=== PATIENT | male | born 1980 | race American Indian/Alaskan Native ===

== ENCOUNTER 2017-11-10 12:12 | Emergency (ER) | payer SELFPAY ==
[2017-11-10] MEDS ORDERED: MOTRIN PO ONE (12:39)
--- NOTE | 2017-11-10 13:20 | XRay Report ---
RIGHT FOOT, 3 views: History: Right foot pain. There is moderate to severe diffuse soft tissue swelling. Bone mineralization is normal. No evidence for fracture, malalignment or bone lesion. There are mild degenerative changes in the midfoot and first metatarsophalangeal joint. Small plantar spur is noted. IMPRESSION: Soft tissue swelling. Degenerative changes. Plantar spur. No acute bony injury is appreciated.
--- NOTE | 2017-11-10 13:40 | Emergency Department Report ---
ED Lower Extremity HPI - General Chief Complaint: Extremity Injury, Lower Stated Complaint: FOOT PAIN Time Seen by Provider: 11/10/17 12:35 Source: patient, EMS Mode of arrival: Wheelchair Limitations: Physical Limitation - History of Present Illness Initial Comments: This is a 37-year-old male nontoxic, well nourished in appearance, no acute signs of distress presents to the ED with c/o of right foot pain. Patient stated that he was diagnosed with gout on his left foot and has been primarily putting a lot of weight on his right foot area. Patient denies any trauma to the area.Patient denies any numbness, tingling, fever, chills, nausea, vomiting , chest pain, shortness of breath, headache, stiff neck. Patient denies any joint swelling or joint redness. Patient denies decreased range of motion. Patient stated has decreased gait due to pain. MD Complaint: foot injury Injury: Foot: Right Severity: mild Severity scale (0 -10): 8 Improves With: immobilization Worsens With: weight bearing, movement, palpation Associated Symptoms: swelling, unable to bear weight. denies: snap/pop sensation, numbness, tingling, able to partially bear weight, ambulatory - Related Data Previous Rx's Medication Instructions Recorded Last Taken Type Ibuprofen [Motrin] 800 mg PO Q8HR PRN #30 tablet 11/10/17 Unknown Rx Allergies Allergy/AdvReac Type Severity Reaction Status Date / Time No Known Allergies Allergy Unverified 11/10/17 14:20 ED Review of Systems ROS: Stated complaint: FOOT PAIN Other details as noted in HPI Constitutional: denies: chills, fever Eyes: denies: eye pain, eye discharge, vision change ENT: denies: ear pain, throat pain Respiratory: denies: cough, shortness of breath, wheezing Cardiovascular: denies: chest pain, palpitations Endocrine: no symptoms reported Gastrointestinal: denies: abdominal pain, nausea, diarrhea Genitourinary: denies: urgency, dysuria Musculoskeletal: denies: back pain, joint swelling, arthralgia Skin: denies: rash, lesions Neurological: denies: headache, weakness, paresthesias Psychiatric: denies: anxiety, depression Hematological/Lymphatic: denies: easy bleeding, easy bruising ED Past Medical Hx - Past Medical History Previous Medical History?: No - Surgical History Past Surgical History?: No - Social History Smoking Status: Current Every Day Smoker Substance Use Type: None - Medications Home Medications: Home Medications Medication Instructions Recorded Confirmed Last Taken Type Ibuprofen [Motrin] 800 mg PO Q8HR PRN #30 tablet 11/10/17 Unknown Rx ED Physical Exam - General Limitations: Physical Limitation General appearance: alert, in no apparent distress - Head Head exam: Present: atraumatic, normocephalic - Eye Eye exam: Present: normal appearance - ENT ENT exam: Present: mucous membranes moist - Neck Neck exam: Present: normal inspection - Respiratory Respiratory exam: Present: normal lung sounds bilaterally. Absent: respiratory distress - Cardiovascular Cardiovascular Exam: Present: regular rate, normal rhythm. Absent: systolic murmur, diastolic murmur, rubs, gallop - GI/Abdominal GI/Abdominal exam: Present: soft, normal bowel sounds - Rectal Rectal exam: Present: deferred - Extremities Exam Extremities exam: Present: normal inspection, full ROM, tenderness, normal capillary refill. Absent: joint swelling - Expanded Lower Extremity Exam Right Hip exam: Present: normal inspection, full ROM. Absent: tenderness, swelling Upper Leg exam: Present: normal inspection, full ROM. Absent: tenderness, swelling Knee exam: Present: normal inspection, full ROM. Absent: tenderness, swelling Lower Leg exam: Present: normal inspection, full ROM. Absent: tenderness, swelling Ankle exam: Present: normal inspection, full ROM. Absent: tenderness, swelling , abrasion, laceration, ecchymosis, deformity, crepidus, dislocation, erythema, anterior draw sign Foot/Toe exam: Present: normal inspection, full ROM, tenderness, swelling. Absent: abrasion, laceration, ecchymosis, deformity, crepidus, dislocation, erythema, amputation, puncture wound, foreign body, calcaneal tenderness, tenderness at base of 5th metatarsal, nail avulsion, subungual hematoma Neuro vascular tendon exam: Present: no vascular compromise. Absent: pulse deficit, abnormal cap refill, motor deficit, sensory deficit, tendon deficit, extremity cold to touch, pallor, abnormal 2-point discrimination, decreased fine /light touch, foot drop, peroneal nerve deficit, significant pain with passive ROM of distal joint Gait: Positive: unable to bear weight - Back Exam Back exam: Present: normal inspection, full ROM - Neurological Exam Neurological exam: Present: alert, oriented X3, normal gait - Psychiatric Psychiatric exam: Present: normal affect, normal mood - Skin Skin exam: Present: warm, dry, intact, normal color. Absent: rash ED Course Vital Signs 11/10/17 11/10/17 12:15 13:35 Temperature 98.9 F Pulse Rate 94 H Respiratory 18 18 Rate Blood Pressure 127/73 O2 Sat by Pulse 96 Oximetry - Reevaluation(s) Reevaluation #1: 11/10/17 13:40 Patient is speaking in full sentences with no signs of distress noted. ED Lower Extremity MDM - Medical Decision Making This is a 37-year-old male that presents with right foot strain. Patient is stable and was examined by me. I referred patient to an orthopedic doctor for further evaluation for possible MRI. X-ray has been obtained and dictated by the radiologist. Patient is notified of the x-ray report with noted by the patient. Patient does have normal gait with no tenderness and no joint swelling. No ecchymosis. no joint redness or swelling. Not warm to touch. No signs of cellulites present. shafting worker has been consulted about a wheel chair at discharge. shafting worker spoke with patient and miteshn stated he would rather get crutches due to money situation. Patient was educated by RN how to use crutches. Patient was instructed to RICE therapy. Patient received Motrin for pain. Patient is discharged with Motrin. At time of discharge, the patient does not seem toxic or ill in appearance. No acute signs of distress noted. Patient agrees to discharge treatment plan of care. No further questions noted by the patient. Critical care attestation.: If time is entered above; I have spent that time in minutes in the direct care of this critically ill patient, excluding procedure time. ED Disposition Clinical Impression: Strain of left foot Qualifiers: Encounter type: initial encounter Qualified Code(s): S96.912A - Strain of unspecified muscle and tendon at ankle and foot level, left foot, initial encounter Disposition: - TO HOME OR SELFCARE Is pt being admited?: No Does the pt Need Aspirin: No Condition: Stable Instructions: RICE Therapy (ED) Additional Instructions: Follow-up with a orthopedic doctor in 3-5 days or if symptoms worsen and continue return to emergency room as soon as possible. Prescriptions: Ibuprofen [Motrin] 800 mg PO Q8HR PRN #30 tablet PRN Reason: Pain, Moderate (4-6) Referrals: PRIMARY CAREMD [Primary Care Provider] - 3-5 Days SHIKHA RACHEL MD [Staff Physician] - 3-5 Days [facility] [Outside] - 3-[address] [facility] [Outside] - 3-5 Days
[2017-11-10 16:20] VITALS: BP 148/76
== END 2017-11-10 16:56 | disposition home or self-care (01) ==
LOC: ED 12:12
DX: S96.912A Strain of unspecified muscle and tendon at ankle and foot level, left foot, initial encounter (principal); F17.200 Nicotine dependence, unspecified, uncomplicated; X50.0XXA Overexertion from strenuous movement or load, initial encounter; Y93.89 Activity, other specified; Y92.89 Other specified places as the place of occurrence of the external cause; Y99.8 Other external cause status
CPT/HCPCS: 99284

== ENCOUNTER 2018-07-03 12:39 | Emergency (ER) | payer SELFPAY ==
[2018-07-03 12:50] VITALS: BP 151/93
[2018-07-03] MEDS ORDERED: DECADRON IM ONE (13:30)
[2018-07-03] MEDS ORDERED: COLCHICINE PO ONE ×2 (13:30)
[2018-07-03] MEDS ORDERED: NORCO 10/325 PO ONE (13:30)
--- NOTE | 2018-07-03 14:05 | Emergency Department Report ---
ED Extremity Problem HPI - General Chief complaint: Extremity Problem,Nontraumatic Stated complaint: RT FOOT PAIN Time Seen by Provider: 07/03/18 13:23 Source: patient, EMS Mode of arrival: Wheelchair Limitations: No Limitations - History of Present Illness Initial comments: Patient is a 37-year-old -[place] male who is morbidly obese who is com plaining of right foot pain and ankle pain. Patient has a history of gout. Patient states that even gently touching his foot and ankle causes intense pain. Patient states pain is intermittent in severity is worse with movement and light touching. The patient denies any fevers chills nausea vomiting diarrhea. Patient states it is been no acute trauma. Severity scale (0 -10): 10 - Related Data Previous Rx's Medication Instructions Recorded Last Taken Type Ibuprofen [Motrin] 800 mg PO Q8HR PRN #30 tablet 11/10/17 Unknown Rx HYDROcodone/APAP 5-325 [[place] 1 each PO Q6HR PRN #14 tablet 07/03/18 Unknown Rx 5/325] Ketorolac [Toradol] 10 mg PO Q6H PRN #12 tablet 07/03/18 Unknown Rx Allergies Allergy/AdvReac Type Severity Reaction Status Date / Time No Known Allergies Allergy Unverified 11/10/17 14:20 ED Review of Systems ROS: Stated complaint: RT FOOT PAIN Other details as noted in HPI Comment: All other systems reviewed and negative ED Past Medical Hx - Past Medical History Additional medical history: Gout - Surgical History Past Surgical History?: No - Social History Smoking Status: Never Smoker Substance Use Type: None - Medications Home Medications: Home Medications Medication Instructions Recorded Confirmed Last Taken Type Ibuprofen [Motrin] 800 mg PO Q8HR PRN #30 tablet 11/10/17 Unknown Rx HYDROcodone/APAP 5-325 [[place] 1 each PO Q6HR PRN #14 tablet 07/03/18 Unknown Rx 5/325] Ketorolac [Toradol] 10 mg PO Q6H PRN #12 tablet 07/03/18 Unknown Rx ED Physical Exam - General Limitations: No Limitations General appearance: alert, in no apparent distress - Head Head exam: Present: atraumatic, normocephalic - Eye Eye exam: Present: normal appearance - ENT ENT exam: Present: mucous membranes moist - Neck Neck exam: Present: normal inspection - Respiratory Respiratory exam: Present: normal lung sounds bilaterally. Absent: respiratory distress, wheezes, rales, rhonchi - Cardiovascular Cardiovascular Exam: Present: regular rate, normal rhythm. Absent: systolic murmur, diastolic murmur, rubs, gallop - GI/Abdominal GI/Abdominal exam: Present: soft, normal bowel sounds. Absent: distended, tenderness, guarding, rebound - Rectal Rectal exam: Present: deferred - Extremities Exam Extremities exam: Present: normal inspection - Back Exam Back exam: Present: normal inspection - Neurological Exam Neurological exam: Present: alert, oriented X3 - Psychiatric Psychiatric exam: Present: normal affect, normal mood - Skin Skin exam: Present: warm, dry, intact, normal color. Absent: rash ED Course Vital Signs 07/03/18 07/03/18 12:47 13:42 Temperature 98.3 F Pulse Rate 86 Respiratory 18 16 Rate Blood Pressure 151/93 O2 Sat by Pulse 97 Oximetry ED Medical Decision Making - Medical Decision Making Patient was started on colchicine and pain meds for gout. The patient be discharged home. Critical care attestation.: If time is entered above; I have spent that time in minutes in the direct care of this critically ill patient, excluding procedure time. ED Disposition Clinical Impression: Acute gout Qualifiers: Gout site: foot Gout etiology: idiopathic Laterality: right Qualified Code(s): M10.071 - Idiopathic gout, right ankle and foot Disposition: - TO HOME OR SELFCARE Is pt being admited?: No Does the pt Need Aspirin: No Condition: Stable Instructions: Acute Gouty Arthritis (ED) Referrals: [facility] [Other] - 3-5 Days Time of Disposition: 14:04
== END 2018-07-03 14:40 | disposition home or self-care (01) ==
LOC: ED 12:39
DX: M10.071 Idiopathic gout, right ankle and foot (principal)
CPT/HCPCS: 96372; 99283; J1100

== ENCOUNTER 2021-06-29 15:31 | Inpatient (IN) | payer SELFPAY ==
[2021-06-29] MEDS ORDERED: ONDANSETRON 4 MG/2 ML INJ IV ONE (18:25)
--- NOTE | 2021-06-29 18:31 | Emergency Department Report ---
HPI - General Chief Complaint: Weakness Time Seen by Provider: 06/29/21 18:16 - HPI HPI: Room 2 The patient is a 40-year-old male present with chief complaint of nausea vomiting. The patient admits to nausea vomiting for the past several hours which is what prompted him to come to the emergency department. The patient was in the waiting room when he was witnessed having intractable nausea vomiting. Patient appears confused and is a poor historian. Patient initially complained of a headache but then when asked directly he denied having a headache or chest pain. Patient only admits to nausea and vomiting as his only symptoms. The patient is slow to respond and does not answer all questions posed to him. ED Past Medical Hx - Past Medical History Additional medical history: Gout - Family History Family history: no significant - Social History Smoking Status: Unknown if ever smoked Substance Use Type: None - Medications Home Medications: Home Medications Medication Instructions Recorded Confirmed Last Taken Type Ibuprofen [Motrin] 800 mg PO Q8HR PRN #30 tablet 11/10/17 Unknown Rx HYDROcodone/APAP 5-325 [[place] 1 each PO Q6HR PRN #14 tablet 07/03/18 Unknown Rx 5/325] Ketorolac [Toradol] 10 mg PO Q6H PRN #12 tablet 07/03/18 Unknown Rx ED Review of Systems ROS: Stated complaint: HYPERGLYCEMIA/HYERTENSION Other details as noted in HPI Comment: Unobtainable due to pts medical conditions Physical Exam - Physical Exam Vital Signs: Vital Signs 06/29/21 15:36 Temperature 98.3 F Pulse Rate 98 H Respiratory 16 Rate Blood Pressure 142/86 [Left] O2 Sat by Pulse 98 Oximetry Physical Exam: GENERAL: The patient is well-developed well-nourished male lying on stretcher appearing somewhat confused but in no acute distress. [] HEENT: Normocephalic. Atraumatic. Strabismus. Patient has moist mucous membranes. NECK: Supple. No meningitic signs are noted. Trachea midline CHEST/LUNGS: Clear to auscultation. There is no respiratory distress noted. HEART/CARDIOVASCULAR: Regular. There is no tachycardia. There is no gallop rub or murmur. ABDOMEN: Abdomen is soft, nontender. Patient has normal bowel sounds. There is no abdominal distention. SKIN: There is no rash. There is no edema. There is no diaphoresis. NEURO: The patient is awake but slow to respond. Patient does not answer all questions.. The patient is not cooperative with neurologic exam. Strabismus present. The patient has normal speech MUSCULOSKELETAL: There is no evidence of acute injury. ED Course Vital Signs 06/29/21 15:36 Temperature 98.3 F Pulse Rate 98 H Respiratory 16 Rate Blood Pressure 142/86 [Left] O2 Sat by Pulse 98 Oximetry ED Medical Decision Making - Lab Data Result diagrams: 06/29/21 19:01 06/29/21 19:00 Laboratory Tests 06/29/21 06/29/21 06/29/21 18:24 19:00 19:00 WBC RBC Hgb Hct MCV MCH MCHC RDW Plt Count Lymph % (Auto) [place] % (Auto) Eos % (Auto) Baso % (Auto) Lymph # (Auto) [place] # (Auto) Eos # (Auto) Baso # (Auto) Seg Neutrophils % Seg Neutrophils # Sodium 133 L Potassium 4.0 Chloride 96.3 L Carbon Dioxide 21 L Anion Gap 20 BUN 9 Creatinine 0.8 Estimated GFR > 60 BUN/Creatinine Ratio 11 Glucose 331 H POC Glucose 348 H Calcium 10.5 H Magnesium 1.60 L Total Bilirubin 0.70 AST 15 ALT 14 Alkaline Phosphatase 133 H Ammonia Total Creatine Kinase 150 CK-MB (CK-2) 2.1 CK-MB (CK-2) Rel Index 1.4 Total Protein 8.4 H Albumin 3.9 Albumin/Globulin Ratio 0.9 Lipase 9 L TSH Free T4 Plasma/Serum Alcohol < 0.01 06/29/21 06/29/21 06/29/21 19:01 19:01 19:01 WBC 17.2 H RBC 5.15 H Hgb 14.6 Hct 45.1 MCV 88 MCH 28 MCHC 32 RDW 14.6 Plt Count 298 Lymph % (Auto) [employer] [place] % (Auto) [employer] Eos % (Auto) [employer] Baso % (Auto) [employer] Lymph # (Auto) [employer] [place] # (Auto) [employer] Eos # (Auto) [employer] Baso # (Auto) [employer] Seg Neutrophils % [employer] Seg Neutrophils # [employer] Sodium Potassium Chloride Carbon Dioxide Anion Gap BUN Creatinine Estimated GFR BUN/Creatinine Ratio Glucose POC Glucose Calcium Magnesium Total Bilirubin AST ALT Alkaline Phosphatase Ammonia 33.0 Total Creatine Kinase CK-MB (CK-2) CK-MB (CK-2) Rel Index Total Protein Albumin Albumin/Globulin Ratio Lipase TSH 1.050 Free T4 1.21 Plasma/Serum Alcohol - EKG Data -: EKG Interpreted by De EKG shows normal: sinus rhythm, axis Rate: normal (64 bpm) - EKG Data When compared to previous EKG there are: previous EKG unavailable Interpretation: nonspecific ST-T wave zaida (Biphasic T waves lead III) - Radiology Data Radiology results: report reviewed (CT head), image reviewed (CT head) [facility] [address] [place] [address] Cat Scan Report Signed Patient: SERA HOYOS MR#: [id number] : 1980 Acct:[id number] Age/Sex: 40 / M ADM Date: 06/29/21 Loc: ED Attending Dr: Ordering Physician: MELISSA MANZO MD Date of Service: 06/29/21 Procedure(s): CT head/brain wo con Accession Number(s): [id number] cc: MELISSA MANZO MD CT head/brain wo con INDICATION / CLINICAL INFORMATION: 40 years Male; Nausea vomiting, altered mental status. TECHNIQUE: Routine CT head without contrast. All CT scans at this location are performed using CT dose reduction for ALARA by means of automated exposure control. COMPARISON: None. FINDINGS: BRAIN / INTRACRANIAL CONTENTS: The motion and beam hardening significantly degrades the image quality. However, the brain grossly demonstrate appropriate attenuation for age. The ventricular system appears to be within normal limits in size and configuration. There is no clear CT evidence of acute intracranial hemorrhage or significant mass effect. ORBITS: No significant abnormality of visualized orbits. SINUSES / MASTOIDS: No significant abnormality in the visualized paranasal sinuses or mastoid air cells. CRANIOCERVICAL JUNCTION: No significant abnormality. ADDITIONAL FINDINGS: None. IMPRESSION: 1. The study is limited by motion. However, there is no gross CT evidence of acute intracranial process. Signer Name: Fredrick Jacobo MD Signed: 06/29/2021 7:54 PM Workstation Name: [id number] Transcribed By: MR Dictated By: Fredrick Jacobo MD Electronically Authenticated By: Fredrick Jacobo MD Signed Date/Time: 06/29/211953 DD/ 52 - Differential Diagnosis ICH, dehydration, gastritis, ACS, UTI, DKA, intracranial mass Critical care attestation.: If time is entered above; I have spent that time in minutes in the direct care of this critically ill patient, excluding procedure time. ED Disposition Clinical Impression: Altered mental status Disposition: ADMITTED INPATIENT Is pt being admited?: Yes Does the pt Need Aspirin: No Condition: Fair Time of Disposition: 21:02 (Care transferred to hospitalist (Dr. Alba))
[2021-06-29 19:33] LABS: Hematocrit 45.1 % (35.5-45.6); Hemoglobin 14.6 gm/dl (11.8-15.2); Mean Corpuscular HGB Conc 32 % (32-34); Mean Corpuscular Volume 88 fl (84-94); Platelet Count 298 K/mm3 (140-440); Red Blood Count 5.15 M/mm3 (3.65-5.03); Red Cell Distribution Width 14.6 % (13.2-15.2)
[2021-06-29 19:51] LABS: Alanine Aminotransferase 14 units/L (7-56); Albumin 3.9 g/dL (3.9-5); BUN/Creatinine Ratio 11; Blood Urea Nitrogen 9 mg/dL (9-20); Calcium 10.5 mg/dL (8.4-10.2); Creatine Kinase MB 2.1 ng/mL (0.0-4.0); Hemolysis Index 22
--- NOTE | 2021-06-29 19:59 | Cat Scan Report ---
CT head/brain wo con INDICATION / CLINICAL INFORMATION: 40 years Male; Nausea vomiting, altered mental status. TECHNIQUE: Routine CT head without contrast. All CT scans at this location are performed using CT dos e reduction for ALARA by means of automated exposure control. COMPARISON: None. FINDINGS: BRAIN / INTRACRANIAL CONTENTS: The motion and beam hardening significantly degrades the image quality . However, the brain grossly demonstrate appropriate attenuation for age. The ventricular system appe ars to be within normal limits in size and configuration. There is no clear CT evidence of acute intr acranial hemorrhage or significant mass effect. ORBITS: No significant abnormality of visualized orbits. SINUSES / MASTOIDS: No significant abnormality in the visualized paranasal sinuses or mastoid air rambo ls. CRANIOCERVICAL JUNCTION: No significant abnormality. ADDITIONAL FINDINGS: None. IMPRESSION: 1. The study is limited by motion. However, there is no gross CT evidence of acute intracranial proce ss. Signer Name: Fredrick Jacobo MD Signed: 06/29/2021 7:54 PM Workstation Name: [id number]
[2021-06-29 20:01] LABS: Free T4 (Free Thyroxine) 1.21 ng/dL (0.76-1.46)
[2021-06-29] MEDS ORDERED: MAGNESIUM SULFATE 2 GM/50 ML BAG IV ONE (20:08)
[2021-06-29 20:36] LABS: Basophils % (Manual) 0 % (0.0-1.8); Eosinophils % (Manual) 0 % (0.0-4.3); Total Cells Counted 100
[2021-06-29 20:37] LABS: RBC Morphology Normal
[2021-06-29] MEDS ORDERED: INSULIN REGULAR, HUMAN 100 UNITS/1 ML IV ONE (20:51)
[2021-06-29] MEDS ORDERED: SODIUM CHLORIDE 0.9% 1000 ML 1,000 ML IV ONE (20:51)
[2021-06-29] MEDS ORDERED: MORPHINE 2 MG/1 ML INJ IV PRN (21:20)
[2021-06-29] MEDS ORDERED: ALBUTEROL 2.5 MG/3 ML NEBU IH PRN (21:20)
[2021-06-29] MEDS ORDERED: ONDANSETRON 4 MG/2 ML INJ IV PRN (21:20)
[2021-06-29] MEDS ORDERED: HYDROmorphone 1 MG/1 ML INJ IV PRN (21:20)
[2021-06-29] MEDS ORDERED: DEXTROSE 50% IN WATER (25GM) 50 ML SYRINGE IV PRN (21:20)
--- NOTE | 2021-06-29 21:28 | History and Physical Report ---
History of Present Illness Date of examination: 06/29/21 Date of admission: 06/29/21 Chief complaint: Weakness Nausea vomiting History of present illness: 40-year-old male with past medical history of hypertension, diabetes and obesity was brought to the emergency room because of nausea vomiting. The patient admits to nausea vomiting for the past several hours which is what prompted him to come to the emergency department. The patient was in the waiting room when he was witnessed having intractable nausea vomiting. Patient appears confused and is a poor historian. Patient initially complained of a headache but then when asked directly he denied having a headache or chest pain. Patient only admits to nausea and vomiting as his only symptoms. The patient is slow to respond and does not answer all questions posed to him. In the emergency room initial CT scan shows no acute intracranial abnormality, but patient glucose is 331, magnesium 1.60. Ammonia level is 33.0. So going to admit the patient we will put the patient on oxygen IV fluid insulin sliding scale Past History Past Medical History: diabetes, hypertension, other (Obesity gout) Past Surgical History: No surgical history Social history: no significant social history Family history: hypertension Medications and Allergies Allergies Allergy/AdvReac Type Severity Reaction Status Date / Time No Known Allergies Allergy Unverified 11/10/17 14:20 Home Medications Medication Instructions Recorded Confirmed Last Taken Type Ibuprofen [Motrin] 800 mg PO Q8HR PRN #30 tablet 11/10/17 Unknown Rx HYDROcodone/APAP 5-325 [[place] 1 each PO Q6HR PRN #14 tablet 07/03/18 Unknown Rx 5/325] Ketorolac [Toradol] 10 mg PO Q6H PRN #12 tablet 07/03/18 Unknown Rx Active Meds: Active Medications Acetaminophen (Acetaminophen 325 Mg Tab) 650 mg PO Q4H PRN PRN Reason: Pain MILD(1-3)/Fever >100.5/FINLEY Albuterol (Albuterol 2.5 Mg/3 Ml Nebu) 2.5 mg IH Q3HRT PRN PRN Reason: Shortness Of Breath Albuterol/Ipratropium (Ipratropium/Albuterol Sulfate 3 Ml Ampul.Neb) 1 ampul IH Q6HRT REBEL Dextrose (Dextrose 50% In Water (25gm) 50 Ml Syringe) 50 ml IV Q30MIN PRN; Protocol PRN Reason: Hypoglycemia Famotidine (Famotidine 20 Mg/2 Ml Inj) 20 mg IV BID REBEL Sodium Chloride (Nacl 0.9% 1000 Ml) 1,000 mls @ 999 mls/hr IV ONCE ONE Stop: 06/29/21 21:51 Sodium Chloride (Nacl 0.9% 1000 Ml) 1,000 mls @ 125 mls/hr IV DIRECT REBEL Ondansetron HCl (Ondansetron 4 Mg/2 Ml Inj) 4 mg IV Q8H PRN PRN Reason: Nausea And Vomiting Sodium Chloride (Sodium Chloride 0.9% 10 Ml Flush Syringe) 10 ml IV BID REBEL Sodium Chloride (Sodium Chloride 0.9% 10 Ml Flush Syringe) 10 ml IV PRN PRN PRN Reason: LINE FLUSH Review of Systems All systems: negative Constitutional: fatigue, weakness, malaise, other (Confusion) Gastrointestinal: nausea, vomiting Exam - Constitutional Vitals: Temp Pulse Resp BP Pulse Ox 98 F 78 16 136/78 98 06/29/21 20:48 06/29/21 20:48 06/29/21 15:36 06/29/21 20:48 06/29/21 20:42 General appearance: Present: mild distress, well-nourished - EENT Eyes: Present: PERRL ENT: hearing intact, clear oral mucosa - Neck Neck: Present: supple, normal ROM - Respiratory Respiratory effort: normal Respiratory: bilateral: diminished - Cardiovascular Heart Sounds: Present: S1 & S2. Absent: rub, click - Extremities Extremities: pulses symmetrical, No edema Peripheral Pulses: within normal limits - Abdominal General gastrointestinal: Present: soft, non-tender, non-distended, normal bowel sounds Male genitourinary: Present: normal - Integumentary Integumentary: Present: clear, warm, dry - Musculoskeletal Musculoskeletal: gait normal, strength equal bilaterally - Psychiatric Psychiatric: other (Patient is altered mental status) - Neurologic Neurologic: CNII-XII intact, moves all extremities, other (Patient is altered mental status) Results - Labs CBC & Chem 7: 06/29/21 19:01 06/29/21 19:00 Labs: Laboratory Last Values WBC 17.2 K/mm3 (4.5-11.0) H 06/29/21 19:01 RBC 5.15 M/mm3 (3.65-5.03) H 06/29/21 19:01 Hgb 14.6 gm/dl (11.8-15.2) 06/29/21 19: Hct 45.1 % (35.5-45.6) 06/29/21 19: MCV 88 fl (84-94) 06/29/21 19:01 MCH 28 pg (28-32) 06/29/21 19:01 MCHC 32 % (32-34) 06/29/21 19: RDW 14.6 % (13.2-15.2) 06/29/21 19: Plt Count 298 K/mm3 (140-440) 06/29/21 19:01 Lymph % (Auto) Special Investigation Unit Investigator 06/29/21 19:01 Story % (Auto) Special Investigation Unit Investigator 06/29/21 19:01 Eos % (Auto) Special Investigation Unit Investigator 06/29/21 19:01 Baso % (Auto) Special Investigation Unit Investigator 06/29/21 19:01 Lymph # (Auto) Special Investigation Unit Investigator 06/29/21 19:01 Story # (Auto) Special Investigation Unit Investigator 06/29/21 19:01 Eos # (Auto) Special Investigation Unit Investigator 06/29/21 19:01 Baso # (Auto) Special Investigation Unit Investigator 06/29/21 19:01 Add Manual Diff Complete 06/29/21 19: Total Counted 100 06/29/21 19: Seg Neutrophils % Special Investigation Unit Investigator 06/29/21 19: Seg Neuts % (Manual) 92.0 % (40.0-70.0) H 06/29/21 19: Band Neutrophils % 0 % 06/29/21 19: Lymphocytes % (Manual) 5.0 % (13.4-35.0) L 06/29/21 19: Reactive Lymphs % (Man) 0 % 06/29/21 19:01 Monocytes % (Manual) 3.0 % (0.0-7.3) 06/29/21 19:01 Eosinophils % (Manual) 0 % (0.0-4.3) 06/29/21 19:01 Basophils % (Manual) 0 % (0.0-1.8) 06/29/21 19:01 Metamyelocytes % 0 % 06/29/21 19:01 Myelocytes % 0 % 06/29/21 19:01 Promyelocytes % 0 % 06/29/21 19: Blast Cells % 0 % 06/29/21 19:01 Nucleated RBC % Not Reportable 06/29/21 19:01 Seg Neutrophils # Special Investigation Unit Investigator 06/29/21 19:01 Seg Neutrophils # Man 15.8 K/mm3 (1.8-7.7) H 06/29/21 19:01 Band Neutrophils # 0.0 K/mm3 06/29/21 19:01 Lymphocytes # (Manual) 0.9 K/mm3 (1.2-5.4) L 06/29/21 19:01 Abs React Lymphs (Man) 0.0 K/mm3 06/29/21 19:01 Monocytes # (Manual) 0.5 K/mm3 (0.0-0.8) 06/29/21 19:01 Eosinophils # (Manual) 0.0 K/mm3 (0.0-0.4) 06/29/21 19:01 Basophils # (Manual) 0.0 K/mm3 (0.0-0.1) 06/29/21 19:01 Metamyelocytes # 0.0 K/mm3 06/29/21 19:01 Myelocytes # 0.0 K/mm3 06/29/21 19:01 Promyelocytes # 0.0 K/mm3 06/29/21 19:01 Blast Cells # 0.0 K/mm3 06/29/21 19:01 WBC Morphology Not Reportable 06/29/21 19:01 Hypersegmented Neuts Not Reportable 06/29/21 19:01 Hyposegmented Neuts Not Reportable 06/29/21 19:01 Hypogranular Neuts Not Reportable 06/29/21 19:01 Smudge Cells Not Reportable 06/29/21 19:01 Toxic Granulation Not Reportable 06/29/21 19:01 Toxic Vacuolation Not Reportable 06/29/21 19:01 Dohle Bodies Not Reportable 06/29/21 19:01 Pelger-Huet Anomaly Not Reportable 06/29/21 19:01 Ajit Rods Not Reportable 06/29/21 19:01 Platelet Estimate Not Reportable 06/29/21 19:01 Clumped Platelets Not Reportable 06/29/21 19:01 Plt Clumps, EDTA Not Reportable 06/29/21 19:01 Large Platelets Not Reportable 06/29/21 19:01 Giant Platelets Not Reportable 06/29/21 19:01 Platelet Satelliting Not Reportable 06/29/21 19:01 Plt Morphology Comment Not Reportable 06/29/21 19:01 RBC Morphology Normal 06/29/21 19:01 Dimorphic RBCs Not Reportable 06/29/21 19:01 Polychromasia Not Reportable 06/29/21 19:01 Hypochromasia Not Reportable 06/29/21 19:01 Poikilocytosis Not Reportable 06/29/21 19:01 Anisocytosis Not Reportable 06/29/21 19:01 Microcytosis Not Reportable 06/29/21 19:01 Macrocytosis Not Reportable 06/29/21 19:01 Spherocytes Not Reportable 06/29/21 19:01 Pappenheimer Bodies Not Reportable 06/29/21 19:01 Sickle Cells Not Reportable 06/29/21 19:01 Target Cells Not Reportable 06/29/21 19:01 Tear Drop Cells Not Reportable 06/29/21 19:01 Ovalocytes Not Reportable 06/29/21 19:01 Helmet Cells Not Reportable 06/29/21 19:01 [place] Bodies Not Reportable 06/29/21 19:01 [place] Rings Not Reportable 06/29/21 19:01 [place] Cells Not Reportable 06/29/21 19:01 Bite Cells Not Reportable 06/29/21 19:01 Crenated Cell Not Reportable 06/29/21 19:01 Elliptocytes Not Reportable 06/29/21 19:01 Acanthocytes (Spur) Not Reportable 06/29/21 19:01 Rouleaux Not Reportable 06/29/21 19:01 Hemoglobin C Crystals Not Reportable 06/29/21 19:01 Schistocytes Not Reportable 06/29/21 19:01 Malaria parasites Not Reportable 06/29/21 19:01 Jose David Bodies Not Reportable 06/29/21 19:01 Hem Pathologist Commnt No 06/29/21 19:01 VBG pH 7.387 (7.320-7.420) 06/29/21 20:35 Sodium 133 mmol/L (137-145) L 06/29/21 19:00 Potassium 4.0 mmol/L (3.6-5.0) 06/29/21 19:00 Chloride 96.3 mmol/L (98-107) L 06/29/21 19:00 Carbon Dioxide 21 mmol/L (22-30) L 06/29/21 19:00 Anion Gap 20 mmol/L 06/29/21 19:00 BUN 9 mg/dL (9-20) 06/29/21 19:00 Creatinine 0.8 mg/dL (0.8-1.3) 06/29/21 19:00 Estimated GFR > 60 ml/min 06/29/21 19: BUN/Creatinine Ratio 11 % 06/29/21 19:00 Glucose 331 mg/dL (75-100) H 06/29/21 19:00 POC Glucose 348 mg/dL (70-105) H 06/29/21 18:24 Calcium 10.5 mg/dL (8.4-10.2) H 06/29/21 19:00 Magnesium 1.60 mg/dL (1.7-2.3) L 06/29/21 19:00 Total Bilirubin 0.70 mg/dL (0.1-1.2) 06/29/21 19:00 AST 15 units/L (5-40) 06/29/21 19:00 ALT 14 units/L (7-56) 06/29/21 19:00 Alkaline Phosphatase 133 units/L (35-129) H 06/29/21 19:00 Ammonia 33.0 umol/L (25-60) 06/29/21 19:01 Total Creatine Kinase 150 units/L (55-170) 06/29/21 19:00 CK-MB (CK-2) 2.1 ng/mL (0.0-4.0) 06/29/21 19: CK-MB (CK-2) Rel Index 1.4 (0-4) 06/29/21 19:00 Total Protein 8.4 g/dL (6.3-8.2) H 06/29/21 19:00 Albumin 3.9 g/dL (3.9-5) 06/29/21 19:00 Albumin/Globulin Ratio 0.9 % 06/29/21 19:00 Lipase 9 units/L (13-60) L 06/29/21 19:00 TSH 1.050 mlU/mL (0.270-4.200) 06/29/21 19: Free T4 1.21 ng/dL (0.76-1.46) 06/29/21 19:01 Plasma/Serum Alcohol < 0.01 % (0-0.07) 06/29/21 19:00 - Imaging and Cardiology CT Scan - head: report reviewed Assessment and Plan VTE prophylaxis?: Chemical Plan of care discussed with patient/family: Yes - Patient Problems (1) Acute metabolic encephalopathy Current Visit: Yes Status: Acute Plan to address problem: Admit the patient to the medical telemetry. Metabolic encephalopathy most likely secondary to hyperglycemia and intractable nausea vomiting we will put the patient on insulin sliding scale. Normal saline at the rate of 125 cc/h. Oxygen by nasal cannula 3 L/min. Diabetic education. Recheck CBC BMP in the morning (2) Nausea & vomiting Current Visit: Yes Status: Acute Plan to address problem: NPO. Normal saline at the rate of 125 cc/h. Pepcid 20 mg IV every 12 hours. Zofran 4 mg IV every 6 hours as needed (3) Hyperglycemia Current Visit: Yes Status: Acute Plan to address problem: Accu-Chek every 6 hours with Humalog moderate dose coverage. Diabetic education. Recheck BMP in the morning (4) Hypertension Current Visit: Yes Status: Acute Plan to address problem: Hydralazine 10 mg IV every 6 hours as needed. We continue the home medication (5) Morbid obesity Current Visit: Yes Status: Acute Plan to address problem: We counseled the patient regarding weight reduction. Outpatient follow-up with bariatric surgery (6) Hypomagnesemia Current Visit: Yes Status: Acute Plan to address problem: We are giving 2 g of magnesium. Recheck magnesium in the morning (7) DVT prophylaxis Current Visit: Yes Status: Acute Plan to address problem: Heparin 5000 units subcu every 12 hours for DVT prophylaxis. Pepcid 20 mg IV every 12 hours for GI prophylaxis. Patient is a full code
[2021-06-29] MEDS ORDERED: SODIUM CHLORIDE 0.9% 1000 ML 1,000 ML IV SCH (21:30)
[2021-06-30] MEDS: FAMOTIDINE 20 MG/2 ML INJ IV SCH ×3 (01:45→22:00)
[2021-06-30] MEDS: HEPARIN 5,000 UNIT/1 ML VIAL SUB-Q SCH ×3 (01:45→21:58)
[2021-06-30] MEDS: INSULIN LISPRO 100 UNIT/ML SUB-Q SCH ×4 (02:30→17:57)
[2021-06-30] MEDS: IPRATROPIUM/ALBUTEROL SULFATE 3 ML AMPUL.NEB IH SCH ×3 (02:46→15:07)
[2021-06-30 07:30] LABS: Blood Urea Nitrogen 8 mg/dL (9-20); Calcium 10.1 mg/dL (8.4-10.2); Hemolysis Index 2
[2021-06-30 07:31] LABS: BUN/Creatinine Ratio 11
[2021-06-30 09:01] LABS: Basophils # (Auto) 0.1 K/mm3 (0.0-0.1); Basophils % (Auto) 0.6 % (0.0-1.8); Eosinophils % (Auto) 0.2 % (0.0-4.3); Hematocrit 42.5 % (35.5-45.6); Hemoglobin 14.2 gm/dl (11.8-15.2); Lymphocytes # (Auto) 1.5 K/mm3 (1.2-5.4); Lymphocytes % (Auto) 10.6 % (13.4-35.0); Mean Corpuscular HGB Conc 33 % (32-34); Mean Corpuscular Volume 86 fl (84-94); Monocytes # (Auto) 0.3 K/mm3 (0.0-0.8); Platelet Count 319 K/mm3 (140-440); Red Blood Count 4.96 M/mm3 (3.65-5.03); Red Cell Distribution Width 14.8 % (13.2-15.2)
[2021-06-30 09:15] LABS: Blood Urea Nitrogen 8 mg/dL (9-20); Calcium 9.9 mg/dL (8.4-10.2); Hemolysis Index 1
[2021-06-30 09:17] LABS: BUN/Creatinine Ratio 11
[2021-06-30 10:19] LABS: Bilirubin,Urine NEG (Negative); Blood,Urine MOD (Negative); Color,Urine Yellow (Yellow); Mucus,Urine FEW /HPF; Protein,Urine <15 mg/dL mg/dL (Negative); Urobilinogen,Urine < 2.0 mg/dL (<2.0)
[2021-06-30 10:24] LABS: Amphetamine Screen,Urine Negative; Benzodiazepines Screen,Urine Negative; Cannabinoid Screen,Urine Negative; Cocaine Screen,Urine Negative; Methadone Screen,Urine Negative; Opiate Screen,Urine Negative
[2021-06-30] MEDS: INSULIN NPH/REGULAR 70/30 INJ SUB-Q SCH ×2 (12:24→17:57)
[2021-06-30] MEDS: INSULIN REGULAR, HUMAN 100 UNITS/1 ML SUB-Q SCH ×3 (12:24→22:16)
--- NOTE | 2021-06-30 12:31 | Electrocardiograph Report ---
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
--- NOTE | 2021-06-30 13:59 | Progress Note ---
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 Continue to monitor #Morbid obesity #Weight loss counseling #Exercise counseling - BMI 62.1 - Counseled patient on the importance of weight loss, incorporating exercise, and dietary changes (lean meats, fresh fruits and vegetables, and water intake). Patient expresses understanding. - Time: +15 min #Advanced care planning -Disease education conducted, care plan discussed, diagnoses discussed, prognosis discussed, and patient acknowledges understanding with care plan -Time: +30 min Disposition Plan: Continue medical management Total Time Spent with Patient (Minutes): 45 minutes History Interval history: No acute events overnight. Hospitalist Physical - Constitutional Vitals: Temp Pulse Resp BP Pulse Ox 97.0 F L 77 18 125/71 96 06/30/21 11:35 06/30/21 11:35 06/30/21 11:35 06/30/21 11:35 06/30/21 11:35 General appearance: Present: no acute distress, well-nourished, obese - EENT Eyes: Present: PERRL, EOM intact ENT: hearing intact, clear oral mucosa, dentition normal - Neck Neck: Present: supple, normal ROM - Respiratory Respiratory effort: normal Respiratory: bilateral: diminished (Difficult to auscultate given body habitus) - Cardiovascular Rhythm: regular Heart Sounds: Present: S1 & S2 - Extremities Extremities: no ischemia, pulses intact, pulses symmetrical, No edema, normal temperature, normal color Peripheral Pulses: within normal limits - Abdominal General gastrointestinal: soft, non-tender, non-distended, normal bowel sounds - Integumentary Integumentary: Present: clear, warm, dry - Psychiatric Psychiatric: appropriate mood/affect, cooperative - Neurologic Neurologic: CNII-XII intact, other (Alert and oriented x2) - Allied Health Allied health notes reviewed: nursing Results - Labs CBC & Chem 7: 06/30/21 08:29 06/30/21 08:29 Labs: Laboratory Last Values WBC 14.0 K/mm3 (4.5-11.0) H 06/30/21 08: RBC 4.96 M/mm3 (3.65-5.03) 06/30/21 08: Hgb 14.2 gm/dl (11.8-15.2) 06/30/21 08: Hct 42.5 % (35.5-45.6) 06/30/21 08: MCV 86 fl (84-94) 06/30/21 08: MCH 29 pg (28-32) 06/30/21 08: MCHC 33 % (32-34) 06/30/21 08: RDW 14.8 % (13.2-15.2) 06/30/21 08:29 Plt Count 319 K/mm3 (140-440) 06/30/21 08:29 Lymph % (Auto) 10.6 % (13.4-35.0) L 06/30/21 08: [place] % (Auto) 2.0 % (0.0-7.3) 06/30/21 08: Eos % (Auto) 0.2 % (0.0-4.3) 06/30/21 08: Baso % (Auto) 0.6 % (0.0-1.8) 06/30/21 08: Lymph # (Auto) 1.5 K/mm3 (1.2-5.4) 06/30/21 08: [place] # (Auto) 0.3 K/mm3 (0.0-0.8) 06/30/21 08: Eos # (Auto) 0.0 K/mm3 (0.0-0.4) 06/30/21 08: Baso # (Auto) 0.1 K/mm3 (0.0-0.1) 06/30/21 08:29 Add Manual Diff Complete 06/29/21 19:01 Total Counted 100 06/29/21 19:01 Seg Neutrophils % 86.6 % (40.0-70.0) H 06/30/21 08:29 Seg Neuts % (Manual) 92.0 % (40.0-70.0) H 06/29/21 19:01 Band Neutrophils % 0 % 06/29/21 19:01 Lymphocytes % (Manual) 5.0 % (13.4-35.0) L 06/29/21 19:01 Reactive Lymphs % (Man) 0 % 06/29/21 19:01 Monocytes % (Manual) 3.0 % (0.0-7.3) 06/29/21 19:01 Eosinophils % (Manual) 0 % (0.0-4.3) 06/29/21 19:01 Basophils % (Manual) 0 % (0.0-1.8) 06/29/21 19:01 Metamyelocytes % 0 % 06/29/21 19:01 Myelocytes % 0 % 06/29/21 19:01 Promyelocytes % 0 % 06/29/21 19:01 Blast Cells % 0 % 06/29/21 19:01 Nucleated RBC % Not Reportable 06/29/21 19:01 Seg Neutrophils # 12.2 K/mm3 (1.8-7.7) H 06/30/21 08:29 Seg Neutrophils # Man 15.8 K/mm3 (1.8-7.7) H 06/29/21 19:01 Band Neutrophils # 0.0 K/mm3 06/29/21 19:01 Lymphocytes # (Manual) 0.9 K/mm3 (1.2-5.4) L 06/29/21 19:01 Abs React Lymphs (Man) 0.0 K/mm3 06/29/21 19:01 Monocytes # (Manual) 0.5 K/mm3 (0.0-0.8) 06/29/21 19:01 Eosinophils # (Manual) 0.0 K/mm3 (0.0-0.4) 06/29/21 19:01 Basophils # (Manual) 0.0 K/mm3 (0.0-0.1) 06/29/21 19:01 Metamyelocytes # 0.0 K/mm3 06/29/21 19:01 Myelocytes # 0.0 K/mm3 06/29/21 19:01 Promyelocytes # 0.0 K/mm3 06/29/21 19:01 Blast Cells # 0.0 K/mm3 06/29/21 19:01 WBC Morphology Not Reportable 06/29/21 19:01 Hypersegmented Neuts Not Reportable 06/29/21 19:01 Hyposegmented Neuts Not Reportable 06/29/21 19:01 Hypogranular Neuts Not Reportable 06/29/21 19:01 Smudge Cells Not Reportable 06/29/21 19:01 Toxic Granulation Not Reportable 06/29/21 19:01 Toxic Vacuolation Not Reportable 06/29/21 19:01 Dohle Bodies Not Reportable 06/29/21 19:01 Pelger-Huet Anomaly Not Reportable 06/29/21 19:01 Ajit Rods Not Reportable 06/29/21 19:01 Platelet Estimate Not Reportable 06/29/21 19:01 Clumped Platelets Not Reportable 06/29/21 19:01 Plt Clumps, EDTA Not Reportable 06/29/21 19:01 Large Platelets Not Reportable 06/29/21 19:01 Giant Platelets Not Reportable 06/29/21 19:01 Platelet Satelliting Not Reportable 06/29/21 19:01 Plt Morphology Comment Not Reportable 06/29/21 19:01 RBC Morphology Normal 06/29/21 19:01 Dimorphic RBCs Not Reportable 06/29/21 19:01 Polychromasia Not Reportable 06/29/21 19:01 Hypochromasia Not Reportable 06/29/21 19:01 Poikilocytosis Not Reportable 06/29/21 19:01 Anisocytosis Not Reportable 06/29/21 19:01 Microcytosis Not Reportable 06/29/21 19:01 Macrocytosis Not Reportable 06/29/21 19:01 Spherocytes Not Reportable 06/29/21 19:01 Pappenheimer Bodies Not Reportable 06/29/21 19:01 Sickle Cells Not Reportable 06/29/21 19:01 Target Cells Not Reportable 06/29/21 19:01 Tear Drop Cells Not Reportable 06/29/21 19:01 Ovalocytes Not Reportable 06/29/21 19:01 Helmet Cells Not Reportable 06/29/21 19:01 [place] Bodies Not Reportable 06/29/21 19:01 [place] Rings Not Reportable 06/29/21 19:01 [place] Cells Not Reportable 06/29/21 19:01 Bite Cells Not Reportable 06/29/21 19:01 Crenated Cell Not Reportable 06/29/21 19:01 Elliptocytes Not Reportable 06/29/21 19:01 Acanthocytes (Spur) Not Reportable 06/29/21 19:01 Rouleaux Not Reportable 06/29/21 19:01 Hemoglobin C Crystals Not Reportable 06/29/21 19:01 Schistocytes Not Reportable 06/29/21 19:01 Malaria parasites Not Reportable 06/29/21 19:01 Jose David Bodies Not Reportable 06/29/21 19:01 Hem Pathologist Commnt No 06/29/21 19:01 VBG pH 7.387 (7.320-7.420) 06/29/21 20:35 Sodium 136 mmol/L (137-145) L 06/30/21 08:29 Potassium 4.1 mmol/L (3.6-5.0) 06/30/21 08:29 Chloride 100.2 mmol/L (98-107) 06/30/21 08:29 Carbon Dioxide 25 mmol/L (22-30) 06/30/21 08:29 Anion Gap 15 mmol/L 06/30/21 08:29 BUN 8 mg/dL (9-20) L 06/30/21 08:29 Creatinine 0.7 mg/dL (0.8-1.3) L 06/30/21 08:29 Estimated GFR > 60 ml/min 06/30/21 08:29 BUN/Creatinine Ratio 11 % 06/30/21 08:29 Glucose 302 mg/dL (75-100) H 06/30/21 08:29 POC Glucose 308 mg/dL (70-105) H 06/30/21 11:34 Hemoglobin A1c 12.2 % (4-6) H 06/30/21 08:29 Lactic Acid 1.70 mmol/L (0.7-2.0) 06/30/21 08:29 Calcium 9.9 mg/dL (8.4-10.2) 06/30/21 08:29 Magnesium 1.60 mg/dL (1.7-2.3) L 06/29/21 19:00 Total Bilirubin 0.70 mg/dL (0.1-1.2) 06/29/21 19:00 AST 15 units/L (5-40) 06/29/21 19:00 ALT 14 units/L (7-56) 06/29/21 19:00 Alkaline Phosphatase 133 units/L (35-129) H 06/29/21 19:00 Ammonia 33.0 umol/L (25-60) 06/29/21 19:01 Total Creatine Kinase 150 units/L (55-170) 06/29/21 19:00 CK-MB (CK-2) 2.1 ng/mL (0.0-4.0) 06/29/21 19:00 CK-MB (CK-2) Rel Index 1.4 (0-4) 06/29/21 19:00 Total Protein 8.4 g/dL (6.3-8.2) H 06/29/21 19:00 Albumin 3.9 g/dL (3.9-5) 06/29/21 19:00 Albumin/Globulin Ratio 0.9 % 06/29/21 19:00 Lipase 9 units/L (13-60) L 06/29/21 19:00 TSH 1.050 mlU/mL (0.270-4.200) 06/29/21 19:01 Free T4 1.21 ng/dL (0.76-1.46) 06/29/21 19:01 Urine Color Yellow (Yellow) 06/30/21 Unknown Urine Turbidity Clear (Clear) 06/30/21 Unknown Urine pH 5.0 (5.0-7.0) 06/30/21 Unknown Ur Specific Slemp 1.015 (1.003-1.030) 06/30/21 Unknown Urine Protein <15 mg/dl mg/dL (Negative) 06/30/21 Unknown Urine Glucose (UA) >=500 mg/dL (Negative) 06/30/21 Unknown Urine Ketones Neg mg/dL (Negative) 06/30/21 Unknown Urine Blood Mod (Negative) 06/30/21 Unknown Urine Nitrite Neg (Negative) 06/30/21 Unknown Urine Bilirubin Neg (Negative) 06/30/21 Unknown Urine Urobilinogen < 2.0 mg/dL (<2.0) 06/30/21 Unknown Ur Leukocyte Esterase Neg (Negative) 06/30/21 Unknown Urine WBC (Auto) 2.0 /HPF (0.0-6.0) 06/30/21 Unknown Urine RBC (Auto) 1.0 /HPF (0.0-6.0) 06/30/21 Unknown U Epithel Cells (Auto) 1.0 /HPF (0-13.0) 06/30/21 Unknown Urine Mucus Few /HPF 06/30/21 Unknown Urine Opiates Screen Negative 06/30/21 Unknown Urine Methadone Screen Negative 06/30/21 Unknown Ur Barbiturates Screen Negative 06/30/21 Unknown Ur Phencyclidine Scrn Negative 06/30/21 Unknown Ur Amphetamines Screen Negative 06/30/21 Unknown U Benzodiazepines Scrn Negative 06/30/21 Unknown Urine Cocaine Screen Negative 06/30/21 Unknown U Marijuana (THC) Screen Negative 06/30/21 Unknown Drugs of Abuse Note Disclamer 06/30/21 Unknown Plasma/Serum Alcohol < 0.01 % (0-0.07) 06/29/21 19:00 Microbiology: Microbiology 06/30/21 09:08 Peripheral/Venous Blood Culture - Preliminary Culture in Progress 06/30/21 08:29 Peripheral/Venous Blood Culture - Preliminary Culture in Progress Parnell/IV: Voiding Method Condom Catheter Active Medications - Current Medications Current Medications: Generic Name Dose Route Start Last Admin Trade Name Freq PRN Reason Stop Dose Admin Acetaminophen 650 mg 06/29/21 21:20 Acetaminophen 325 Mg Tab PO Q4H PRN Pain MILD(1-3)/Fever >100.5/FINLEY Albuterol 2.5 mg 06/29/21 21:20 Albuterol 2.5 Mg/3 Ml Nebu IH Q3HRT PRN Shortness Of Breath Albuterol/Ipratropium 1 ampul 06/30/21 02:00 06/30/21 02:46 Ipratropium/Albuterol Sulfate 3 Ml Ampul.Neb IH Not Given Q6HRT REBEL Dextrose 50 ml 06/29/21 21:20 Dextrose 50% In Water (25gm) 50 Ml Syringe IV Q30MIN PRN Hypoglycemia Protocol Famotidine 20 mg 06/29/21 22:00 06/30/21 10:35 Famotidine 20 Mg/2 Ml Inj IV 20 mg BID ERBEL Administration Heparin Sodium (Porcine) 5,000 unit 06/29/21 22:00 06/30/21 10:35 Heparin 5,000 Unit/1 Ml Vial SUB-Q 5,000 unit Q12HR REBEL Administration Hydromorphone HCl 0.5 mg 06/29/21 21:20 Hydromorphone 1 Mg/1 Ml Inj IV Q3H PRN Pain , Severe (7-10) Sodium Chloride 1,000 mls @ 125 mls/hr 06/29/21 21:30 06/30/21 03:33 Nacl 0.9% 1000 Ml IV 125 mls/hr DIRECT REBEL Administration Insulin Human Isoph/Insulin Regular 15 unit 06/30/21 12:00 06/30/21 12:24 Insulin Nph/Regular 70/30 Inj SUB-Q 15 unit BIDDIAB REBEL Administration Insulin Human Lispro 0 unit 06/30/21 00:00 06/30/21 12:23 Insulin Lispro 100 Unit/Ml SUB-Q 6 unit Q6HR REBEL Administration Protocol Insulin Human Regular 5 units 06/30/21 11:30 06/30/21 12:24 Insulin Regular, Human 100 Units/1 Ml SUB-Q 5 units ACHS REBEL Administration Morphine Sulfate 2 mg 06/29/21 21:20 Morphine 2 Mg/1 Ml Inj IV Q4H PRN Pain, Moderate (4-6) Ondansetron HCl 4 mg 06/29/21 21:20 06/30/21 12:23 Ondansetron 4 Mg/2 Ml Inj IV 4 mg Q8H PRN Administration Nausea And Vomiting Sodium Chloride 10 ml 06/29/21 22:00 06/30/21 10:36 Sodium Chloride 0.9% 10 Ml Flush Syringe IV 10 ml BID REBEL Administration Sodium Chloride 10 ml 06/29/21 21:20 Sodium Chloride 0.9% 10 Ml Flush Syringe IV PRN PRN LINE FLUSH
[2021-06-30] MEDS ORDERED: LACTATED RINGERS 1,000 ML IV ONE (14:30)
[2021-06-30] MEDS ORDERED: NIFEdipine XL 30 MG TAB PO SCH (15:00)
[2021-06-30] MEDS: LISINOPRIL 20 MG TAB PO SCH (15:15)
[2021-07-01] MEDS: INSULIN LISPRO 100 UNIT/ML SUB-Q SCH ×5 (00:11→22:43)
[2021-07-01 07:28] LABS: Basophils # (Auto) 0.1 K/mm3 (0.0-0.1); Eosinophils # (Auto) 0.1 K/mm3 (0.0-0.4); Eosinophils % (Auto) 0.7 % (0.0-4.3); Hematocrit 40.5 % (35.5-45.6); Hemoglobin 13.5 gm/dl (11.8-15.2); Lymphocytes # (Auto) 2.6 K/mm3 (1.2-5.4); Lymphocytes % (Auto) 29.4 % (13.4-35.0); Mean Corpuscular HGB Conc 33 % (32-34); Mean Corpuscular Volume 86 fl (84-94); Monocytes # (Auto) 0.6 K/mm3 (0.0-0.8); Monocytes % (Auto) 6.6 % (0.0-7.3); Platelet Count 274 K/mm3 (140-440); Red Cell Distribution Width 14.6 % (13.2-15.2)
[2021-07-01] MEDS ORDERED: NIFEdipine XL 30 MG TAB PO SCH (07:47)
[2021-07-01 08:00] LABS: Blood Urea Nitrogen 8 mg/dL (9-20); Calcium 9.6 mg/dL (8.4-10.2); Hemolysis Index 4
[2021-07-01 08:04] LABS: BUN/Creatinine Ratio 11
[2021-07-01] MEDS ORDERED: NIFEdipine XL 60 MG TAB PO SCH ×2 (10:00→21:47)
[2021-07-01] MEDS: LOSARTAN 50 MG TAB PO SCH (12:11)
[2021-07-01] MEDS: FAMOTIDINE 20 MG/2 ML INJ IV SCH ×2 (12:12→21:47)
[2021-07-01] MEDS: LISINOPRIL 20 MG TAB PO SCH ×2 (12:14→22:41)
[2021-07-01] MEDS: HEPARIN 5,000 UNIT/1 ML VIAL SUB-Q SCH ×2 (12:16→21:47)
[2021-07-01] MEDS: INSULIN REGULAR, HUMAN 100 UNITS/1 ML SUB-Q SCH ×3 (12:18→21:47)
[2021-07-01] MEDS ORDERED: LACTATED RINGERS 1,000 ML IV ONE (14:06)
[2021-07-01] MEDS ORDERED: MAGNESIUM SULFATE 2 GM/50 ML BAG IV ONE (14:06)
--- NOTE | 2021-07-01 15:05 | Progress Note ---
Assessment and Plan Assessment and plan: #Acute metabolic encephalopathy -Etiology could include DKA versus infectious etiology/sepsis CT head noncontrast unremarkable Unremarkable urinalysis, lactic acid, procalcitonin, urinary ketones, and ammonia. Blood cultures have NGTD x24 hours. Pending B12, folic acid, and lumbar puncture. Neurology consulted; pending recs. 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 Continue to monitor #Morbid obesity #Weight loss counseling #Exercise counseling - BMI 62.1 - Counseled patient on the importance of weight loss, incorporating exercise, and dietary changes (lean meats, fresh fruits and vegetables, and water intake). Patient expresses understanding. - Time: +15 min #Advanced care planning -Disease education conducted, care plan discussed, diagnoses discussed, prognosis discussed, and patient acknowledges understanding with care plan -Time: +30 min Disposition Plan: Continue medical management Total Time Spent with Patient (Minutes): 45 min History Interval history: No acute events overnight. Hospitalist Physical - Constitutional Vitals: Temp Pulse Resp BP Pulse Ox 98.6 F 63 18 173/81 94 07/01/21 08:53 07/01/21 12:14 07/01/21 08:53 07/01/21 12:14 07/01/21 08:53 General appearance: Present: no acute distress, well-nourished, obese - EENT Eyes: Present: PERRL, EOM intact ENT: hearing intact, clear oral mucosa, dentition normal - Neck Neck: Present: supple, normal ROM - Respiratory Respiratory effort: normal Respiratory: bilateral: diminished (Go to auscultate given body habitus) - Cardiovascular Rhythm: regular Heart Sounds: Present: S1 & S2 - Extremities Extremities: no ischemia, pulses intact, pulses symmetrical, No edema, normal temperature, normal color Peripheral Pulses: within normal limits - Abdominal General gastrointestinal: soft, non-tender, non-distended, normal bowel sounds - Integumentary Integumentary: Present: clear, warm, dry - Psychiatric Psychiatric: cooperative, other (Confused and difficulty with answering questions) - Neurologic Neurologic: other (Alert and oriented x1) - Allied Health Allied health notes reviewed: nursing Results - Labs CBC & Chem 7: 07/01/21 07:07 07/01/21 07:07 Labs: Laboratory Last Values WBC 8.8 K/mm3 (4.5-11.0) 07/01/21 07:07 RBC 4.70 M/mm3 (3.65-5.03) 07/01/21 07:07 Hgb 13.5 gm/dl (11.8-15.2) 07/01/21 07:07 Hct 40.5 % (35.5-45.6) 07/01/21 07:07 MCV 86 fl (84-94) 07/01/21 07:07 MCH 29 pg (28-32) 07/01/21 07:07 MCHC 33 % (32-34) 07/01/21 07:07 RDW 14.6 % (13.2-15.2) 07/01/21 07:07 Plt Count 274 K/mm3 (140-440) 07/01/21 07:07 Lymph % (Auto) 29.4 % (13.4-35.0) 07/01/21 07:07 Frio % (Auto) 6.6 % (0.0-7.3) 07/01/21 07:07 Eos % (Auto) 0.7 % (0.0-4.3) 07/01/21 07:07 Baso % (Auto) 1.0 % (0.0-1.8) 07/01/21 07:07 Lymph # (Auto) 2.6 K/mm3 (1.2-5.4) 07/01/21 07:07 Frio # (Auto) 0.6 K/mm3 (0.0-0.8) 07/01/21 07:07 Eos # (Auto) 0.1 K/mm3 (0.0-0.4) 07/01/21 07:07 Baso # (Auto) 0.1 K/mm3 (0.0-0.1) 07/01/21 07:07 Add Manual Diff Complete 06/29/21 19:01 Total Counted 100 06/29/21 19:01 Seg Neutrophils % 62.3 % (40.0-70.0) 07/01/21 07:07 Seg Neuts % (Manual) 92.0 % (40.0-70.0) H 06/29/21 19:01 Band Neutrophils % 0 % 06/29/21 19:01 Lymphocytes % (Manual) 5.0 % (13.4-35.0) L 06/29/21 19:01 Reactive Lymphs % (Man) 0 % 06/29/21 19:01 Monocytes % (Manual) 3.0 % (0.0-7.3) 06/29/21 19:01 Eosinophils % (Manual) 0 % (0.0-4.3) 06/29/21 19:01 Basophils % (Manual) 0 % (0.0-1.8) 06/29/21 19:01 Metamyelocytes % 0 % 06/29/21 19:01 Myelocytes % 0 % 06/29/21 19:01 Promyelocytes % 0 % 06/29/21 19:01 Blast Cells % 0 % 06/29/21 19:01 Nucleated RBC % Not Reportable 06/29/21 19:01 Seg Neutrophils # 5.4 K/mm3 (1.8-7.7) 07/01/21 07:07 Seg Neutrophils # Man 15.8 K/mm3 (1.8-7.7) H 06/29/21 19:01 Band Neutrophils # 0.0 K/mm3 06/29/21 19:01 Lymphocytes # (Manual) 0.9 K/mm3 (1.2-5.4) L 06/29/21 19:01 Abs React Lymphs (Man) 0.0 K/mm3 06/29/21 19:01 Monocytes # (Manual) 0.5 K/mm3 (0.0-0.8) 06/29/21 19:01 Eosinophils # (Manual) 0.0 K/mm3 (0.0-0.4) 06/29/21 19:01 Basophils # (Manual) 0.0 K/mm3 (0.0-0.1) 06/29/21 19:01 Metamyelocytes # 0.0 K/mm3 06/29/21 19:01 Myelocytes # 0.0 K/mm3 06/29/21 19:01 Promyelocytes # 0.0 K/mm3 06/29/21 19:01 Blast Cells # 0.0 K/mm3 06/29/21 19:01 WBC Morphology Not Reportable 06/29/21 19:01 Hypersegmented Neuts Not Reportable 06/29/21 19:01 Hyposegmented Neuts Not Reportable 06/29/21 19:01 Hypogranular Neuts Not Reportable 06/29/21 19:01 Smudge Cells Not Reportable 06/29/21 19:01 Toxic Granulation Not Reportable 06/29/21 19:01 Toxic Vacuolation Not Reportable 06/29/21 19:01 Dohle Bodies Not Reportable 06/29/21 19:01 Pelger-Huet Anomaly Not Reportable 06/29/21 19:01 Ajit Rods Not Reportable 06/29/21 19:01 Platelet Estimate Not Reportable 06/29/21 19:01 Clumped Platelets Not Reportable 06/29/21 19:01 Plt Clumps, EDTA Not Reportable 06/29/21 19:01 Large Platelets Not Reportable 06/29/21 19:01 Giant Platelets Not Reportable 06/29/21 19:01 Platelet Satelliting Not Reportable 06/29/21 19:01 Plt Morphology Comment Not Reportable 06/29/21 19:01 RBC Morphology Normal 06/29/21 19:01 Dimorphic RBCs Not Reportable 06/29/21 19:01 Polychromasia Not Reportable 06/29/21 19:01 Hypochromasia Not Reportable 06/29/21 19:01 Poikilocytosis Not Reportable 06/29/21 19:01 Anisocytosis Not Reportable 06/29/21 19:01 Microcytosis Not Reportable 06/29/21 19:01 Macrocytosis Not Reportable 06/29/21 19:01 Spherocytes Not Reportable 06/29/21 19:01 Pappenheimer Bodies Not Reportable 06/29/21 19:01 Sickle Cells Not Reportable 06/29/21 19:01 Target Cells Not Reportable 06/29/21 19:01 Tear Drop Cells Not Reportable 06/29/21 19:01 Ovalocytes Not Reportable 06/29/21 19:01 Helmet Cells Not Reportable 06/29/21 19:01 Tracey-Vickery Bodies Not Reportable 06/29/21 19:01 [place] Rings Not Reportable 06/29/21 19:01 Anibal Cells Not Reportable 06/29/21 19:01 Bite Cells Not Reportable 06/29/21 19:01 Crenated Cell Not Reportable 06/29/21 19:01 Elliptocytes Not Reportable 06/29/21 19:01 Acanthocytes (Spur) Not Reportable 06/29/21 19:01 Rouleaux Not Reportable 06/29/21 19:01 Hemoglobin C Crystals Not Reportable 06/29/21 19:01 Schistocytes Not Reportable 06/29/21 19:01 Malaria parasites Not Reportable 06/29/21 19:01 Jose David Bodies Not Reportable 06/29/21 19:01 Hem Pathologist Commnt No 06/29/21 19:01 VBG pH 7.387 (7.320-7.420) 06/29/21 20:35 Sodium 138 mmol/L (137-145) 07/01/21 07:07 Potassium 3.8 mmol/L (3.6-5.0) 07/01/21 07:07 Chloride 102.3 mmol/L (98-107) 07/01/21 07:07 Carbon Dioxide 24 mmol/L (22-30) 07/01/21 07:07 Anion Gap 16 mmol/L 07/01/21 07:07 BUN 8 mg/dL (9-20) L 07/01/21 07:07 Creatinine 0.7 mg/dL (0.8-1.3) L 07/01/21 07:07 Estimated GFR > 60 ml/min 07/01/21 07:07 BUN/Creatinine Ratio 11 % 07/01/21 07:07 Glucose 247 mg/dL (75-100) H 07/01/21 07:07 POC Glucose 254 mg/dL (70-105) H 07/01/21 11:41 Hemoglobin A1c 12.2 % (4-6) H 06/30/21 08:29 Lactic Acid 1.70 mmol/L (0.7-2.0) 06/30/21 08:29 Calcium 9.6 mg/dL (8.4-10.2) 07/01/21 07:07 Phosphorus 3.80 mg/dL (2.5-4.5) 07/01/21 07:07 Magnesium 1.60 mg/dL (1.7-2.3) L 07/01/21 07:07 Total Bilirubin 0.70 mg/dL (0.1-1.2) 06/29/21 19:00 AST 15 units/L (5-40) 06/29/21 19:00 ALT 14 units/L (7-56) 06/29/21 19:00 Alkaline Phosphatase 133 units/L (35-129) H 06/29/21 19:00 Ammonia 33.0 umol/L (25-60) 06/29/21 19:01 Total Creatine Kinase 150 units/L (55-170) 06/29/21 19:00 CK-MB (CK-2) 2.1 ng/mL (0.0-4.0) 06/29/21 19:00 CK-MB (CK-2) Rel Index 1.4 (0-4) 06/29/21 19:00 Total Protein 8.4 g/dL (6.3-8.2) H 06/29/21 19:00 Albumin 3.9 g/dL (3.9-5) 06/29/21 19:00 Albumin/Globulin Ratio 0.9 % 06/29/21 19:00 Lipase 9 units/L (13-60) L 06/29/21 19:00 TSH 1.050 mlU/mL (0.270-4.200) 06/29/21 19:01 Free T4 1.21 ng/dL (0.76-1.46) 06/29/21 19:01 Urine Color Yellow (Yellow) 06/30/21 Unknown Urine Turbidity Clear (Clear) 06/30/21 Unknown Urine pH 5.0 (5.0-7.0) 06/30/21 Unknown Ur Specific [place] 1.015 (1.003-1.030) 06/30/21 Unknown Urine Protein <15 mg/dl mg/dL (Negative) 06/30/21 Unknown Urine Glucose (UA) >=500 mg/dL (Negative) 06/30/21 Unknown Urine Ketones Neg mg/dL (Negative) 06/30/21 Unknown Urine Blood Mod (Negative) 06/30/21 Unknown Urine Nitrite Neg (Negative) 06/30/21 Unknown Urine Bilirubin Neg (Negative) 06/30/21 Unknown Urine Urobilinogen < 2.0 mg/dL (<2.0) 06/30/21 Unknown Ur Leukocyte Esterase Neg (Negative) 06/30/21 Unknown Urine WBC (Auto) 2.0 /HPF (0.0-6.0) 06/30/21 Unknown Urine RBC (Auto) 1.0 /HPF (0.0-6.0) 06/30/21 Unknown U Epithel Cells (Auto) 1.0 /HPF (0-13.0) 06/30/21 Unknown Urine Mucus Few /HPF 06/30/21 Unknown Urine Opiates Screen Negative 06/30/21 Unknown Urine Methadone Screen Negative 06/30/21 Unknown Ur Barbiturates Screen Negative 06/30/21 Unknown Ur Phencyclidine Scrn Negative 06/30/21 Unknown Ur Amphetamines Screen Negative 06/30/21 Unknown U Benzodiazepines Scrn Negative 06/30/21 Unknown Urine Cocaine Screen Negative 06/30/21 Unknown U Marijuana (THC) Screen Negative 06/30/21 Unknown Drugs of Abuse Note Disclamer 06/30/21 Unknown Plasma/Serum Alcohol < 0.01 % (0-0.07) 06/29/21 19:00 Microbiology: Microbiology 06/30/21 09:08 Peripheral/Venous Blood Culture - Preliminary NO GROWTH AFTER 24 HOURS 06/30/21 08:29 Peripheral/Venous Blood Culture - Preliminary NO GROWTH AFTER 24 HOURS [place]/IV: Voiding Method Urinal Active Medications - Current Medications Current Medications: Generic Name Dose Route Start Last Admin Trade Name Freq PRN Reason Stop Dose Admin Acetaminophen 650 mg 06/29/21 21:20 Acetaminophen 325 Mg Tab PO Q4H PRN Pain MILD(1-3)/Fever >100.5/FINLEY Albuterol 2.5 mg 06/29/21 21:20 Albuterol 2.5 Mg/3 Ml Nebu IH Q3HRT PRN Shortness Of Breath Dextrose 50 ml 06/29/21 21:20 Dextrose 50% In Water (25gm) 50 Ml Syringe IV Q30MIN PRN Hypoglycemia Protocol Famotidine 20 mg 06/29/21 22:00 07/01/21 12:12 Famotidine 20 Mg/2 Ml Inj IV 20 mg BID REBEL Administration Heparin Sodium (Porcine) 5,000 unit 06/29/21 22:00 07/01/21 12:16 Heparin 5,000 Unit/1 Ml Vial SUB-Q 5,000 unit Q12HR REBEL Administration Hydromorphone HCl 0.5 mg 06/29/21 21:20 Hydromorphone 1 Mg/1 Ml Inj IV Q3H PRN Pain , Severe (7-10) Lactated Ringer's 1,000 mls @ 999 mls/hr 07/01/21 14:06 Lactated Ringers IV 07/01/21 15:06 BOLUS ONE Magnesium Sulfate 2 gm in 50 mls @ 25 mls/hr 07/01/21 14:06 Magnesium Sulfate 2gm/50ml IV 07/01/21 16:05 ONCE ONE Insulin Human Isoph/Insulin Regular 25 unit 07/01/21 14:09 Insulin Nph/Regular 70/30 Inj SUB-Q BIDDIAB REBEL Insulin Human Lispro 0 unit 06/30/21 00:00 07/01/21 12:17 Insulin Lispro 100 Unit/Ml SUB-Q 4 unit Q6HR REBEL Administration Protocol Insulin Human Regular 5 units 06/30/21 11:30 07/01/21 12:18 Insulin Regular, Human 100 Units/1 Ml SUB-Q 5 units ACHS REBEL Administration Lisinopril 20 mg 06/30/21 15:00 07/01/21 12:14 Lisinopril 20 Mg Tab PO 20 mg QDAY REBEL Administration Losartan Potassium 50 mg 07/01/21 10:00 07/01/21 12:11 Losartan 50 Mg Tab PO 50 mg QDAY REBEL Administration Morphine Sulfate 2 mg 06/29/21 21:20 Morphine 2 Mg/1 Ml Inj IV Q4H PRN Pain, Moderate (4-6) Nifedipine 60 mg 07/01/21 10:00 07/01/21 12:06 Nifedipine Xl 60 Mg Tab PO 60 mg QDAY REBEL Administration Ondansetron HCl 4 mg 06/29/21 21:20 06/30/21 12:23 Ondansetron 4 Mg/2 Ml Inj IV 4 mg Q8H PRN Administration Nausea And Vomiting Sodium Chloride 10 ml 06/29/21 22:00 07/01/21 12:16 Sodium Chloride 0.9% 10 Ml Flush Syringe IV 10 ml BID REBEL Administration Sodium Chloride 10 ml 06/29/21 21:20 Sodium Chloride 0.9% 10 Ml Flush Syringe IV PRN PRN LINE FLUSH Nutrition/Malnutrition Assess - Dietary Evaluation Nutrition/Malnutrition Findings: Nutrition Notes Start: 06/30/21 17:20 Freq: Status: Active Protocol: Document 06/30/21 17:20 BOY (Rec: 06/30/21 17:36 BOY [email or web address]) Nutrition Notes Need for Assessment generated from: MD Order,Education Initial or Follow up Brief Note Current Diagnosis Diabetes,Hypertension Other Pertinent Diagnosis Metabolic Encephalopathy, Nausea/Vomiting, Hypomagnesemia, Hyperglycemia. Current Diet Cardiac/Consistent Carbohydrates Diet (since L ). Height 5 ft 6 in Weight 174.633 kg [place] Body Weight (kg) 64.54 BMI 62.1 Weight change and time frame None reported at admission. Weight Status Morbidly Obese Subjective/Other Information RD consult for nutrition education assessment. No reports available on Pt's PO intake of meals at the time , will assess at F/U. RN note on 06/30/21 10:41: pt swallowing test done ,can swallow water without any problem .asked pt about food , stated can i sleep now ,i dont want to eat now .i will eat later ,sent urine for culture ,placed iv on right arm by iv team ,started NS@ 125 ml /hr , given urinal to pt . Pt is on Room Air, O2 saturation @ 98%, according to Physical Assessment History notes. Pt presents intractable Nausea and Vomiting, according to Physical Assessment History notes. Pt has missing teeth, according to Physical Assessment History notes. Pt has HbA1c of 12.2%, according to History & Physical notes. Pt still in critical condition , not a candidate for Nutrition Education at the time, will assess feasibility on F/U. Percent of energy/protein needs met: Prescribed Cardiac/Consistent Carbohydrates Diet provides for energy/protein needs (1, 977 Kcal/86 g) during LOS. Nutrition Intervention Follow-Up By: 07/07/21 Additional Comments Nutrition education will be provided on F/U, if feasible. Continue monitoring food tolerance, %PO intake of meals , and BM.
[2021-07-01] MEDS: INSULIN NPH/REGULAR 70/30 INJ SUB-Q SCH ×2 (21:45→21:46)
[2021-07-01] MEDS ORDERED: NIFEdipine XL 30 MG TAB PO ONE (22:00)
[2021-07-01] MEDS ORDERED: hydrALAZINE 20 MG/1 ML INJ IV PRN (22:00)
[2021-07-01] MEDS: carvediloL 12.5 MG TAB PO SCH (22:41)
[2021-07-02] MEDS: INSULIN LISPRO 100 UNIT/ML SUB-Q SCH ×4 (09:43→23:15)
[2021-07-02] MEDS: INSULIN NPH/REGULAR 70/30 INJ SUB-Q SCH ×3 (09:43→17:34)
[2021-07-02] MEDS: carvediloL 12.5 MG TAB PO SCH ×2 (09:44→23:22)
[2021-07-02] MEDS: LOSARTAN 50 MG TAB PO SCH (09:45)
[2021-07-02] MEDS: LISINOPRIL 20 MG TAB PO SCH (09:45)
[2021-07-02] MEDS: HEPARIN 5,000 UNIT/1 ML VIAL SUB-Q SCH ×2 (09:45→23:17)
[2021-07-02] MEDS: INSULIN REGULAR, HUMAN 100 UNITS/1 ML SUB-Q SCH ×4 (09:46→23:15)
[2021-07-02] MEDS: FAMOTIDINE 20 MG/2 ML INJ IV SCH ×2 (09:46→23:16)
[2021-07-02] MEDS: NIFEdipine XL 90 MG TAB PO SCH (09:59)
--- NOTE | 2021-07-02 11:48 | Progress Note ---
Assessment and Plan Assessment and plan: #Acute metabolic encephalopathyimproving -Etiology could include DKA versus infectious etiology/sepsis CT head noncontrast unremarkable Unremarkable urinalysis, lactic acid, procalcitonin, urinary ketones, and ammonia. Blood cultures have NGTD x24 hours. Unremarkable B12 and folic acid. Neurology consulted; pending recs. Pending lumbar puncture; however, patient declining procedure. #Nausea and vomitingresolved Continue IV Zofran 4 mg every 6 hours as needed and normal saline at 125 cc/hour #Insulin dependent type II diabetes mellitus with hyperglycemiaimproved - hemoglobin A1c: 12.2 - home regimen: Unknown - current regimen: NPH 70/30 30 units twice daily, regular insulin 5 units with meals, moderate SSI - blood glucose goal 140-180 while inpatient - continue to monitor #Elevated transaminases Alkaline phosphatase 133 Continue to monitor #Hypertensionimproved - home medications: None - current medications: Lisinopril 40 mg daily, nifedipine 90 mg daily, and Coreg 12.5 mg twice daily - SBP goal <160 and DBP goal <90 while inpatient - continue to monitor #Hypomagnesemia Magnesium 1.6 Repleted. Continue to monitor #Morbid obesity #Weight loss counseling #Exercise counseling - BMI 62.1 - Counseled patient on the importance of weight loss, incorporating exercise, and dietary changes (lean meats, fresh fruits and vegetables, and water intake). Patient expresses understanding. - Time: +15 min #Advanced care planning -Disease education conducted, care plan discussed, diagnoses discussed, prognosis discussed, and patient acknowledges understanding with care plan -Time: +30 min #Discharge planning - Patient is pending resolution of encephalopathy and neurology recs - Case management has been made aware. Disposition Plan: Continue medical management Total Time Spent with Patient (Minutes): 45 minutes History Interval history: No acute events overnight. Hospitalist Physical - Constitutional Vitals: Temp Pulse Resp BP Pulse Ox 98.5 F 69 18 117/74 99 07/02/21 11:10 07/02/21 11:10 07/02/21 11:10 07/02/21 11:10 07/02/21 11:10 General appearance: Present: no acute distress, well-nourished, obese (Morbidly obese) - EENT Eyes: Present: PERRL, EOM intact ENT: hearing intact, clear oral mucosa, dentition normal - Neck Neck: Present: supple, normal ROM - Respiratory Respiratory effort: normal Respiratory: bilateral: CTA - Cardiovascular Rhythm: regular Heart Sounds: Present: S1 & S2 - Extremities Extremities: no ischemia, pulses intact, pulses symmetrical Peripheral Pulses: within normal limits - Abdominal General gastrointestinal: soft, non-tender, non-distended, normal bowel sounds - Integumentary Integumentary: Present: clear, warm, dry - Psychiatric Psychiatric: appropriate mood/affect, intact judgment & insight, memory intact, cooperative - Neurologic Neurologic: other (alert and oriented X2) - Allied Health Allied health notes reviewed: nursing Results - Labs CBC & Chem 7: 07/01/21 07:07 07/01/21 07:07 Labs: Laboratory Last Values WBC 8.8 K/mm3 (4.5-11.0) 07/01/21 07:07 RBC 4.70 M/mm3 (3.65-5.03) 07/01/21 07:07 Hgb 13.5 gm/dl (11.8-15.2) 07/01/21 07:07 Hct 40.5 % (35.5-45.6) 07/01/21 07:07 MCV 86 fl (84-94) 07/01/21 07:07 MCH 29 pg (28-32) 07/01/21 07:07 MCHC 33 % (32-34) 07/01/21 07:07 RDW 14.6 % (13.2-15.2) 07/01/21 07:07 Plt Count 274 K/mm3 (140-440) 07/01/21 07:07 Lymph % (Auto) 29.4 % (13.4-35.0) 07/01/21 07:07 [place] % (Auto) 6.6 % (0.0-7.3) 07/01/21 07:07 Eos % (Auto) 0.7 % (0.0-4.3) 07/01/21 07:07 Baso % (Auto) 1.0 % (0.0-1.8) 07/01/21 07:07 Lymph # (Auto) 2.6 K/mm3 (1.2-5.4) 07/01/21 07:07 [place] # (Auto) 0.6 K/mm3 (0.0-0.8) 07/01/21 07:07 Eos # (Auto) 0.1 K/mm3 (0.0-0.4) 07/01/21 07:07 Baso # (Auto) 0.1 K/mm3 (0.0-0.1) 07/01/21 07:07 Add Manual Diff Complete 06/29/21 19:01 Total Counted 100 06/29/21 19:01 Seg Neutrophils % 62.3 % (40.0-70.0) 07/01/21 07:07 Seg Neuts % (Manual) 92.0 % (40.0-70.0) H 06/29/21 19:01 Band Neutrophils % 0 % 06/29/21 19:01 Lymphocytes % (Manual) 5.0 % (13.4-35.0) L 06/29/21 19:01 Reactive Lymphs % (Man) 0 % 06/29/21 19:01 Monocytes % (Manual) 3.0 % (0.0-7.3) 06/29/21 19:01 Eosinophils % (Manual) 0 % (0.0-4.3) 06/29/21 19:01 Basophils % (Manual) 0 % (0.0-1.8) 06/29/21 19:01 Metamyelocytes % 0 % 06/29/21 19:01 Myelocytes % 0 % 06/29/21 19:01 Promyelocytes % 0 % 06/29/21 19:01 Blast Cells % 0 % 06/29/21 19:01 Nucleated RBC % Not Reportable 06/29/21 19:01 Seg Neutrophils # 5.4 K/mm3 (1.8-7.7) 07/01/21 07:07 Seg Neutrophils # Man 15.8 K/mm3 (1.8-7.7) H 06/29/21 19:01 Band Neutrophils # 0.0 K/mm3 06/29/21 19:01 Lymphocytes # (Manual) 0.9 K/mm3 (1.2-5.4) L 06/29/21 19:01 Abs React Lymphs (Man) 0.0 K/mm3 06/29/21 19:01 Monocytes # (Manual) 0.5 K/mm3 (0.0-0.8) 06/29/21 19:01 Eosinophils # (Manual) 0.0 K/mm3 (0.0-0.4) 06/29/21 19:01 Basophils # (Manual) 0.0 K/mm3 (0.0-0.1) 06/29/21 19:01 Metamyelocytes # 0.0 K/mm3 06/29/21 19:01 Myelocytes # 0.0 K/mm3 06/29/21 19:01 Promyelocytes # 0.0 K/mm3 06/29/21 19:01 Blast Cells # 0.0 K/mm3 06/29/21 19:01 WBC Morphology Not Reportable 06/29/21 19:01 Hypersegmented Neuts Not Reportable 06/29/21 19:01 Hyposegmented Neuts Not Reportable 06/29/21 19:01 Hypogranular Neuts Not Reportable 06/29/21 19:01 Smudge Cells Not Reportable 06/29/21 19:01 Toxic Granulation Not Reportable 06/29/21 19:01 Toxic Vacuolation Not Reportable 06/29/21 19:01 Dohle Bodies Not Reportable 06/29/21 19:01 Pelger-Huet Anomaly Not Reportable 06/29/21 19:01 Ajit Rods Not Reportable 06/29/21 19:01 Platelet Estimate Not Reportable 06/29/21 19:01 Clumped Platelets Not Reportable 06/29/21 19:01 Plt Clumps, EDTA Not Reportable 06/29/21 19:01 Large Platelets Not Reportable 06/29/21 19:01 Giant Platelets Not Reportable 06/29/21 19:01 Platelet Satelliting Not Reportable 06/29/21 19:01 Plt Morphology Comment Not Reportable 06/29/21 19:01 RBC Morphology Normal 06/29/21 19:01 Dimorphic RBCs Not Reportable 06/29/21 19:01 Polychromasia Not Reportable 06/29/21 19:01 Hypochromasia Not Reportable 06/29/21 19:01 Poikilocytosis Not Reportable 06/29/21 19:01 Anisocytosis Not Reportable 06/29/21 19:01 Microcytosis Not Reportable 06/29/21 19:01 Macrocytosis Not Reportable 06/29/21 19:01 Spherocytes Not Reportable 06/29/21 19:01 Pappenheimer Bodies Not Reportable 06/29/21 19:01 Sickle Cells Not Reportable 06/29/21 19:01 Target Cells Not Reportable 06/29/21 19:01 Tear Drop Cells Not Reportable 06/29/21 19:01 Ovalocytes Not Reportable 06/29/21 19:01 Helmet Cells Not Reportable 06/29/21 19:01 [place] Bodies Not Reportable 06/29/21 19:01 [place] Rings Not Reportable 06/29/21 19:01 [place] Cells Not Reportable 06/29/21 19:01 Bite Cells Not Reportable 06/29/21 19:01 Crenated Cell Not Reportable 06/29/21 19:01 Elliptocytes Not Reportable 06/29/21 19:01 Acanthocytes (Spur) Not Reportable 06/29/21 19:01 Rouleaux Not Reportable 06/29/21 19:01 Hemoglobin C Crystals Not Reportable 06/29/21 19:01 Schistocytes Not Reportable 06/29/21 19:01 Malaria parasites Not Reportable 06/29/21 19:01 Jose David Bodies Not Reportable 06/29/21 19:01 Hem Pathologist Commnt No 06/29/21 19:01 VBG pH 7.387 (7.320-7.420) 06/29/21 20:35 Sodium 138 mmol/L (137-145) 07/01/21 07:07 Potassium 3.8 mmol/L (3.6-5.0) 07/01/21 07:07 Chloride 102.3 mmol/L (98-107) 07/01/21 07:07 Carbon Dioxide 24 mmol/L (22-30) 07/01/21 07:07 Anion Gap 16 mmol/L 07/01/21 07:07 BUN 8 mg/dL (9-20) L 07/01/21 07:07 Creatinine 0.7 mg/dL (0.8-1.3) L 07/01/21 07:07 Estimated GFR > 60 ml/min 07/01/21 07:07 BUN/Creatinine Ratio 11 % 07/01/21 07:07 Glucose 247 mg/dL (75-100) H 07/01/21 07:07 POC Glucose 184 mg/dL (70-105) H 07/02/21 08:22 Hemoglobin A1c 12.2 % (4-6) H 06/30/21 08:29 Lactic Acid 1.70 mmol/L (0.7-2.0) 06/30/21 08:29 Calcium 9.6 mg/dL (8.4-10.2) 07/01/21 07:07 Phosphorus 3.80 mg/dL (2.5-4.5) 07/01/21 07:07 Magnesium 1.60 mg/dL (1.7-2.3) L 07/01/21 07:07 Total Bilirubin 0.70 mg/dL (0.1-1.2) 06/29/21 19:00 AST 15 units/L (5-40) 06/29/21 19:00 ALT 14 units/L (7-56) 06/29/21 19:00 Alkaline Phosphatase 133 units/L (35-129) H 06/29/21 19:00 Ammonia 23.0 umol/L (25-60) L 07/02/21 10:04 Total Creatine Kinase 150 units/L (55-170) 06/29/21 19:00 CK-MB (CK-2) 2.1 ng/mL (0.0-4.0) 06/29/21 19:00 CK-MB (CK-2) Rel Index 1.4 (0-4) 06/29/21 19:00 Total Protein 8.4 g/dL (6.3-8.2) H 06/29/21 19:00 Albumin 3.9 g/dL (3.9-5) 06/29/21 19:00 Albumin/Globulin Ratio 0.9 % 06/29/21 19:00 Lipase 9 units/L (13-60) L 06/29/21 19:00 Vitamin B12 285.0 pg/mL (211-911) 07/01/21 23:22 TSH 1.050 mlU/mL (0.270-4.200) 06/29/21 19:01 Free T4 1.21 ng/dL (0.76-1.46) 06/29/21 19:01 Urine Color Yellow (Yellow) 06/30/21 Unknown Urine Turbidity Clear (Clear) 06/30/21 Unknown Urine pH 5.0 (5.0-7.0) 06/30/21 Unknown Ur Specific [place] 1.015 (1.003-1.030) 06/30/21 Unknown Urine Protein <15 mg/dl mg/dL (Negative) 06/30/21 Unknown Urine Glucose (UA) >=500 mg/dL (Negative) 06/30/21 Unknown Urine Ketones Neg mg/dL (Negative) 06/30/21 Unknown Urine Blood Mod (Negative) 06/30/21 Unknown Urine Nitrite Neg (Negative) 06/30/21 Unknown Urine Bilirubin Neg (Negative) 06/30/21 Unknown Urine Urobilinogen < 2.0 mg/dL (<2.0) 06/30/21 Unknown Ur Leukocyte Esterase Neg (Negative) 06/30/21 Unknown Urine WBC (Auto) 2.0 /HPF (0.0-6.0) 06/30/21 Unknown Urine RBC (Auto) 1.0 /HPF (0.0-6.0) 06/30/21 Unknown U Epithel Cells (Auto) 1.0 /HPF (0-13.0) 06/30/21 Unknown Urine Mucus Few /HPF 06/30/21 Unknown Urine Opiates Screen Negative 06/30/21 Unknown Urine Methadone Screen Negative 06/30/21 Unknown Ur Barbiturates Screen Negative 06/30/21 Unknown Ur Phencyclidine Scrn Negative 06/30/21 Unknown Ur Amphetamines Screen Negative 06/30/21 Unknown U Benzodiazepines Scrn Negative 06/30/21 Unknown Urine Cocaine Screen Negative 06/30/21 Unknown U Marijuana (THC) Screen Negative 06/30/21 Unknown Drugs of Abuse Note Disclamer 06/30/21 Unknown Plasma/Serum Alcohol < 0.01 % (0-0.07) 06/29/21 19:00 Microbiology: Microbiology 06/30/21 09:08 Peripheral/Venous Blood Culture - Preliminary NO GROWTH AFTER 48 HOURS 06/30/21 08:29 Peripheral/Venous Blood Culture - Preliminary NO GROWTH AFTER 48 HOURS [place]/IV: Voiding Method Urinal Active Medications - Current Medications Current Medications: Generic Name Dose Route Start Last Admin Trade Name Freq PRN Reason Stop Dose Admin Acetaminophen 650 mg 06/29/21 21:20 Acetaminophen 325 Mg Tab PO Q4H PRN Pain MILD(1-3)/Fever >100.5/FINLEY Albuterol 2.5 mg 06/29/21 21:20 Albuterol 2.5 Mg/3 Ml Nebu IH Q3HRT PRN Shortness Of Breath Carvedilol 12.5 mg 07/01/21 22:00 07/02/21 09:44 Carvedilol 12.5 Mg Tab PO 12.5 mg BID REBEL Administration Dextrose 50 ml 06/29/21 21:20 Dextrose 50% In Water (25gm) 50 Ml Syringe IV Q30MIN PRN Hypoglycemia Protocol Famotidine 20 mg 06/29/21 22:00 07/02/21 09:46 Famotidine 20 Mg/2 Ml Inj IV 20 mg BID REBEL Administration Heparin Sodium (Porcine) 5,000 unit 06/29/21 22:00 07/02/21 09:45 Heparin 5,000 Unit/1 Ml Vial SUB-Q 5,000 unit Q12HR REBEL Administration Hydralazine HCl 10 mg 07/01/21 22:00 Hydralazine 20 Mg/1 Ml Inj IV Q6HR PRN SBP greater than 160 Hydromorphone HCl 0.5 mg 06/29/21 21:20 Hydromorphone 1 Mg/1 Ml Inj IV Q3H PRN Pain , Severe (7-10) Insulin Human Isoph/Insulin Regular 25 unit 07/01/21 14:09 07/02/21 09:43 Insulin Nph/Regular 70/30 Inj SUB-Q 25 unit BIDDIAB REBEL Administration Insulin Human Lispro 0 unit 07/01/21 22:00 07/02/21 09:43 Insulin Lispro 100 Unit/Ml SUB-Q 2 unit ACHS REBEL Administration Protocol Insulin Human Regular 5 units 06/30/21 11:30 07/02/21 09:46 Insulin Regular, Human 100 Units/1 Ml SUB-Q 5 units ACHS REBEL Administration Lisinopril 40 mg 07/01/21 22:00 07/02/21 09:45 Lisinopril 20 Mg Tab PO 40 mg QDAY REBEL Administration Losartan Potassium 50 mg 07/01/21 10:00 07/02/21 09:45 Losartan 50 Mg Tab PO 50 mg QDAY REBEL Administration Morphine Sulfate 2 mg 06/29/21 21:20 Morphine 2 Mg/1 Ml Inj IV Q4H PRN Pain, Moderate (4-6) Nifedipine 90 mg 07/02/21 10:30 07/02/21 09:59 Nifedipine Xl 90 Mg Tab PO 90 mg QDAY REBEL Administration Ondansetron HCl 4 mg 06/29/21 21:20 06/30/21 12:23 Ondansetron 4 Mg/2 Ml Inj IV 4 mg Q8H PRN Administration Nausea And Vomiting Sodium Chloride 10 ml 06/29/21 22:00 07/02/21 09:47 Sodium Chloride 0.9% 10 Ml Flush Syringe IV 10 ml BID REBEL Administration Sodium Chloride 10 ml 06/29/21 21:20 Sodium Chloride 0.9% 10 Ml Flush Syringe IV PRN PRN LINE FLUSH Nutrition/Malnutrition Assess - Dietary Evaluation Nutrition/Malnutrition Findings: Nutrition Notes Start: 06/30/21 17:20 Freq: Status: Active Protocol: Document 06/30/21 17:20 BOY (Rec: 06/30/21 17:36 BOY [id number]) Nutrition Notes Need for Assessment generated from: MD Order,Education Initial or Follow up Brief Note Current Diagnosis Diabetes,Hypertension Other Pertinent Diagnosis Metabolic Encephalopathy, Nausea/Vomiting, Hypomagnesemia, Hyperglycemia. Current Diet Cardiac/Consistent Carbohydrates Diet (since L ). Height 5 ft 6 in Weight 174.633 kg [place] Body Weight (kg) 64.54 BMI 62.1 Weight change and time frame None reported at admission. Weight Status Morbidly Obese Subjective/Other Information RD consult for nutrition education assessment. No reports available on Pt's PO intake of meals at the time , will assess at F/U. RN note on 06/30/21 10:41: pt swallowing test done ,can swallow water without any problem .asked pt about food , stated can i sleep now ,i dont want to eat now .i will eat later ,sent urine for culture ,placed iv on right arm by iv team ,started NS@ 125 ml /hr , given urinal to pt . Pt is on Room Air, O2 saturation @ 98%, according to Physical Assessment History notes. Pt presents intractable Nausea and Vomiting, according to Physical Assessment History notes. Pt has missing teeth, according to Physical Assessment History notes. Pt has HbA1c of 12.2%, according to History & Physical notes. Pt still in critical condition , not a candidate for Nutrition Education at the time, will assess feasibility on F/U. Percent of energy/protein needs met: Prescribed Cardiac/Consistent Carbohydrates Diet provides for energy/protein needs (1, 977 Kcal/86 g) during LOS. Nutrition Intervention Follow-Up By: 07/07/21 Additional Comments Nutrition education will be provided on F/U, if feasible. Continue monitoring food tolerance, %PO intake of meals , and BM.
[2021-07-02 11:49] LABS: Blood Urea Nitrogen 8 mg/dL (9-20); Calcium 9.9 mg/dL (8.4-10.2); Hemolysis Index 47
[2021-07-02 11:53] LABS: BUN/Creatinine Ratio 13
[2021-07-02] MEDS: ACETAMINOPHEN 325 MG TAB PO PRN (18:23)
--- NOTE | 2021-07-02 19:05 | Consultation ---
History of Present Illness Consult date: 07/02/21 Reason for Consult: Encephalopathy Chief complaint: "I'm fine doc." History of present illness: 40 yo male with hypertension, gout, obesity, chronic right lazy eye, right eye injury w/ paintball, who presents with elevated blood glucose with nausea/emesis and acute encephalopathy. Patient has improved over the last 48 hours compared to his initial presentation. Patient notes that he was not aware that he has diabetes. He notes he was told that he will need a LP. He denies any stiffness of the neck. He notes he had slight headache that is improved since he initially presented to the hospital. Past History Past Medical History: diabetes, hypertension, other (Obesity gout) Past Surgical History: No surgical history Social history: no significant social history Family history: hypertension Medications and Allergies Allergies Allergy/AdvReac Type Severity Reaction Status Date / Time No Known Allergies Allergy Unverified 11/10/17 14:20 Home Medications Medication Instructions Recorded Confirmed Last Taken Type Ibuprofen [Motrin] 800 mg PO Q8HR PRN #30 tablet 11/10/17 07/02/21 Unknown Rx HYDROcodone/APAP 5-325 [[place] 1 each PO Q6HR PRN #14 tablet 07/03/18 07/02/21 Unknown Rx 5/325] Ketorolac [Toradol] 10 mg PO Q6H PRN #12 tablet 07/03/18 07/02/21 Unknown Rx Active Meds: Active Medications Acetaminophen (Acetaminophen 325 Mg Tab) 650 mg PO Q4H PRN PRN Reason: Pain MILD(1-3)/Fever >100.5/FINLEY Last Admin: 07/02/21 18:23 Dose: 650 mg Albuterol (Albuterol 2.5 Mg/3 Ml Nebu) 2.5 mg IH Q3HRT PRN PRN Reason: Shortness Of Breath Carvedilol (Carvedilol 12.5 Mg Tab) 12.5 mg PO BID [facility] Last Admin: 07/02/21 09:44 Dose: 12.5 mg Dextrose (Dextrose 50% In Water (25gm) 50 Ml Syringe) 50 ml IV Q30MIN PRN; Protocol PRN Reason: Hypoglycemia Famotidine (Famotidine 20 Mg/2 Ml Inj) 20 mg IV BID [facility] Last Admin: 07/02/21 09:46 Dose: 20 mg Heparin Sodium (Porcine) (Heparin 5,000 Unit/1 Ml Vial) 5,000 unit SUB-Q Q12HR [facility] Last Admin: 07/02/21 09:45 Dose: 5,000 unit Hydralazine HCl (Hydralazine 20 Mg/1 Ml Inj) 10 mg IV Q6HR PRN PRN Reason: SBP greater than 160 Hydromorphone HCl (Hydromorphone 1 Mg/1 Ml Inj) 0.5 mg IV Q3H PRN PRN Reason: Pain , Severe (7-10) Insulin Human Isoph/Insulin Regular (Insulin Nph/Regular 70/30 Inj) 30 unit SUB-Q BIDDIAB [facility] Last Admin: 07/02/21 17:34 Dose: 30 unit Insulin Human Lispro (Insulin Lispro 100 Unit/Ml) 0 unit SUB-Q [facility]; Protocol Last Admin: 07/02/21 17:34 Dose: 2 unit Insulin Human Regular (Insulin Regular, Human 100 Units/1 Ml) 5 units SUB-Q [facility] Last Admin: 07/02/21 17:34 Dose: 5 units Lisinopril (Lisinopril 20 Mg Tab) 40 mg PO QDAY [facility] Last Admin: 07/02/21 09:45 Dose: 40 mg Losartan Potassium (Losartan 50 Mg Tab) 50 mg PO QDAY [facility] Last Admin: 07/02/21 09:45 Dose: 50 mg Morphine Sulfate (Morphine 2 Mg/1 Ml Inj) 2 mg IV Q4H PRN PRN Reason: Pain, Moderate (4-6) Nifedipine (Nifedipine Xl 90 Mg Tab) 90 mg PO QDAY [facility] Last Admin: 07/02/21 09:59 Dose: 90 mg Ondansetron HCl (Ondansetron 4 Mg/2 Ml Inj) 4 mg IV Q8H PRN PRN Reason: Nausea And Vomiting Last Admin: 06/30/21 12:23 Dose: 4 mg Sodium Chloride (Sodium Chloride 0.9% 10 Ml Flush Syringe) 10 ml IV BID [facility] Last Admin: 07/02/21 09:47 Dose: 10 ml Sodium Chloride (Sodium Chloride 0.9% 10 Ml Flush Syringe) 10 ml IV PRN PRN PRN Reason: LINE FLUSH Review of Systems All systems: negative (as per hpi;) Physical Examination - Vital Signs Vital Signs: Vital Signs Temp Pulse Resp BP Pulse Ox 98.3 F 98 H 16 142/86 98 06/29/21 15:36 06/29/21 15:36 06/29/21 15:36 06/29/21 15:36 06/29/21 15:36 - Physical Exam Narrative exam: Gen: nad, well-nourished; Head: normocephalic; Eyes: no gaze deviation; no ptosis; ENT: normal vocalization; CVS: warm and well-perfused; Pulm: no respiratory distress; GI: appears non-distended; Ext: no cyanosis appreciated at distal extremities; Skin: no acute rash at distal extremities; Heme: no pathologic ecchymosis appreciated at distal extremities; Neuro: alert, oriented to name, age, month, year, surroundings, no dysarthria, no aphasia, CN 2 - R surgical non-reactive pupil; L pupil is round and reactive to light, visual maxwell grossly intact except noted blurred vision at right eye, CN 3, 4, 6 - EOMI except chronic lazy eye on the right, CN 5 - facial sensation symmetric to light touch, CN 7 - facial movement symmetric, CN 8 - hearing grossly intact, CN 9, 10 - uvula midline, CN 11 symmetric shoulder movement, CN 12 - tongue midline; Motor - at least 4/5 at all exts; Sensory - light touch symmetric, Cerebellar - fnf /hts intact, Gait - deferred secondary to fall risk; Results - Laboratory Findings CBC and BMP: 07/01/21 07:07 07/02/21 Unknown Abnormal Lab Findings: Abnormal Labs 06/29/21 06/29/21 06/29/21 18:24 19:00 19:01 WBC 17.2 H RBC 5.15 H Lymph % (Auto) Seg Neutrophils % Seg Neuts % (Manual) 92.0 H Lymphocytes % (Manual) 5.0 L Seg Neutrophils # Seg Neutrophils # Man 15.8 H Lymphocytes # (Manual) 0.9 L Sodium 133 L Chloride 96.3 L Carbon Dioxide 21 L BUN Creatinine Glucose 331 H POC Glucose 348 H Hemoglobin A1c Calcium 10.5 H Magnesium 1.60 L Alkaline Phosphatase 133 H Ammonia Total Protein 8.4 H Lipase 9 L 06/29/21 06/30/21 06/30/21 22:49 02:18 06:41 WBC RBC Lymph % (Auto) Seg Neutrophils % Seg Neuts % (Manual) Lymphocytes % (Manual) Seg Neutrophils # Seg Neutrophils # Man Lymphocytes # (Manual) Sodium Chloride Carbon Dioxide BUN 8 L Creatinine 0.7 L Glucose 320 H POC Glucose 369 H 313 H Hemoglobin A1c Calcium Magnesium Alkaline Phosphatase Ammonia Total Protein Lipase 06/30/21 06/30/21 06/30/21 06:47 08:29 08:29 WBC 14.0 H RBC Lymph % (Auto) 10.6 L Seg Neutrophils % 86.6 H Seg Neuts % (Manual) Lymphocytes % (Manual) Seg Neutrophils # 12.2 H Seg Neutrophils # Man Lymphocytes # (Manual) Sodium 136 L Chloride Carbon Dioxide BUN 8 L Creatinine 0.7 L Glucose 302 H POC Glucose 287 H Hemoglobin A1c Calcium Magnesium Alkaline Phosphatase Ammonia Total Protein Lipase 06/30/21 06/30/21 06/30/21 08:29 11:34 15:59 WBC RBC Lymph % (Auto) Seg Neutrophils % Seg Neuts % (Manual) Lymphocytes % (Manual) Seg Neutrophils # Seg Neutrophils # Man Lymphocytes # (Manual) Sodium Chloride Carbon Dioxide BUN Creatinine Glucose POC Glucose 308 H 278 H Hemoglobin A1c 12.2 H Calcium Magnesium Alkaline Phosphatase Ammonia Total Protein Lipase 06/30/21 07/01/21 07/01/21 21:22 06:23 07:07 WBC RBC Lymph % (Auto) Seg Neutrophils % Seg Neuts % (Manual) Lymphocytes % (Manual) Seg Neutrophils # Seg Neutrophils # Man Lymphocytes # (Manual) Sodium Chloride Carbon Dioxide BUN 8 L Creatinine 0.7 L Glucose 247 H POC Glucose 226 H 244 H Hemoglobin A1c Calcium Magnesium 1.60 L Alkaline Phosphatase Ammonia Total Protein Lipase 07/01/21 07/01/21 07/01/21 11:41 15:45 21:44 WBC RBC Lymph % (Auto) Seg Neutrophils % Seg Neuts % (Manual) Lymphocytes % (Manual) Seg Neutrophils # Seg Neutrophils # Man Lymphocytes # (Manual) Sodium Chloride Carbon Dioxide BUN Creatinine Glucose POC Glucose 254 H 188 H 134 H Hemoglobin A1c Calcium Magnesium Alkaline Phosphatase Ammonia Total Protein Lipase 07/02/21 07/02/21 07/02/21 08:22 10:04 12:10 WBC RBC Lymph % (Auto) Seg Neutrophils % Seg Neuts % (Manual) Lymphocytes % (Manual) Seg Neutrophils # Seg Neutrophils # Man Lymphocytes # (Manual) Sodium Chloride Carbon Dioxide BUN Creatinine Glucose POC Glucose 184 H 175 H Hemoglobin A1c Calcium Magnesium Alkaline Phosphatase Ammonia 23.0 L Total Protein Lipase 07/02/21 07/02/21 16:47 Unknown WBC RBC Lymph % (Auto) Seg Neutrophils % Seg Neuts % (Manual) Lymphocytes % (Manual) Seg Neutrophils # Seg Neutrophils # Man Lymphocytes # (Manual) Sodium Chloride Carbon Dioxide BUN 8 L Creatinine 0.6 L Glucose POC Glucose 165 H Hemoglobin A1c Calcium Magnesium Alkaline Phosphatase Ammonia Total Protein Lipase Assessment and Plan 40 yo male with hypertension, gout, obesity, chronic right lazy eye, right eye injury w/ paintball, who presents with elevated blood glucose with nausea/emesis and acute encephalopathy. Patient has improved over the last 48 hours compared to his initial presentation. 1. Acute Metabolic Encephalopathy - in the setting of severe hyperglycemia; pt notes improvement to baseline; no csf studies indicated at present based on clinical history and today's neurologic exam. 2. DM - aintain euglycemia, including medications, diet, and exercise. 3. Hypertension - aim for normotension. 4. Obesity - patient is interested in loosing weight; consider nutrition consult. 5. No further acute neurologic intervention indicated at present. Neurology will signoff. Matheus Azevedo MD Neurology [id number]
[2021-07-03] MEDS: ACETAMINOPHEN 325 MG TAB PO PRN (02:16)
[2021-07-03 08:07] LABS: BUN/Creatinine Ratio 8; Blood Urea Nitrogen 7 mg/dL (9-20); Calcium 9.3 mg/dL (8.4-10.2); Hemolysis Index 5
[2021-07-03] MEDS: INSULIN REGULAR, HUMAN 100 UNITS/1 ML SUB-Q SCH ×2 (09:25→11:46)
[2021-07-03] MEDS: INSULIN NPH/REGULAR 70/30 INJ SUB-Q SCH ×2 (09:30→09:35)
[2021-07-03] MEDS: LISINOPRIL 20 MG TAB PO SCH (09:35)
[2021-07-03] MEDS: FAMOTIDINE 20 MG/2 ML INJ IV SCH (09:35)
[2021-07-03] MEDS: NIFEdipine XL 90 MG TAB PO SCH (09:35)
[2021-07-03] MEDS: LOSARTAN 50 MG TAB PO SCH (09:35)
[2021-07-03] MEDS: carvediloL 12.5 MG TAB PO SCH (09:35)
[2021-07-03] MEDS: HEPARIN 5,000 UNIT/1 ML VIAL SUB-Q SCH (09:43)
--- NOTE | 2021-07-03 09:53 | Discharge Summary ---
Providers - Providers Date of Admission: 06/29/21 21:20 Date of discharge: 07/03/21 Attending physician: PATRIA LOVE MD 06/29/21 21:20 Consult to Dietitian/Nutrition [CONS] Routine Physician Instructions: Reason For Exam: Reason for Consult: Diet education 07/01/21 14:07 Consult to Physician [CONS] Routine Comment: Consulting Provider: MARITZA GONSALES Physician Instructions: Reason For Exam: Acute encephalopathy Primary care physician: SUPERVISOR ENROBING Hospitalization Reason for admission: Acute metabolic encephalopathy Condition: Fair Pertinent studies: Reviewed. Procedures: None. Hospital course: Patient is a 40-year-old male past medical history of hypertension, morbid obesity, and gout who presented to the emergency department after having a presyncopal episode while he was outside with friends. Patient then proceeded to have nausea and vomiting for several hours that resulted in him presenting to the emergency department. On presentation, the patient was found to be acutely encephalopathic with complaints of a headache. The patient was slow to respond and could not appropriately answer questions asked of him. In the emergency room, the patient was found to be hemodynamically stable; however, he had labs remarkable for blood glucose 331, magnesium 1.6, ammonia 33. Patient had a CT head noncontrast that was unremarkable for acute abnormality. Patient was initiated with IV fluid resuscitation and admitted for management of acute metabolic encephalopathy. The patient was newly diagnosed with type 2 diabetes mellitus with a hemoglobin A1c of 12.2. Patient had unremarkable blood cultures, urine culture, lactic acid, procalcitonin, urinary ketones. Neurology was consulted for further management. The patient's encephalopathy has since resolved, the patient is back to his baseline. The patient was counseled at length about the importance of dietary changes, incorporating exercise, weight loss, and management of newly diagnosed type 2 diabetes mellitus. Patient expressed understanding. Patient is medically clear for discharge. Disposition: 01 HOME / SELF CARE / HOMELESS Final Discharge Diagnosis (Prints w/discharge instructions): Acute metabolic encephalopathy, nausea and vomiting, newly diagnosed type 2 diabetes mellitus with hyperglycemia, elevated transaminases, hypertension, hypomagnesemia, morbid obesity Time spent for discharge: 45 min Core Measure Documentation - Palliative Care Palliative Care/ Comfort Measures: Not Applicable - Core Measures Any of the following diagnoses?: none Exam - Constitutional Vitals: Temp Pulse Resp BP Pulse Ox 98.6 F 71 18 156/102 95 07/03/21 08:27 07/03/21 08:27 07/03/21 08:27 07/03/21 08:27 07/03/21 08:27 General appearance: Present: no acute distress, well-nourished, obese - EENT Eyes: Present: PERRL, EOM intact ENT: hearing intact, clear oral mucosa, dentition normal - Neck Neck: Present: supple, normal ROM - Respiratory Respiratory effort: normal Respiratory: bilateral: CTA - Cardiovascular Rhythm: regular Heart Sounds: Present: S1 & S2 - Extremities Extremities: no ischemia, pulses intact, pulses symmetrical, No edema, normal temperature, normal color, Full ROM Peripheral Pulses: within normal limits - Abdominal General gastrointestinal: Present: soft, non-tender, non-distended, normal bowel sounds Male genitourinary: Present: deferred - Rectal Rectal Exam: deferred - Integumentary Integumentary: Present: clear, warm, dry - Musculoskeletal Musculoskeletal: strength equal bilaterally - Psychiatric Psychiatric: appropriate mood/affect, intact judgment & insight, memory intact, cooperative - Neurologic Neurologic: CNII-XII intact, moves all extremities - Allied Health Allied health notes reviewed: nursing Plan Activity: advance as tolerated Diet: low salt, diabetic Additional Instructions: Patient is a 40-year-old male past medical history of hypertension, morbid obesity, and gout who presented to the emergency department after having a presyncopal episode while he was outside with friends. Patient then proceeded to have nausea and vomiting for several hours that resulted in him presenting to the emergency department. On presentation, the patient was found to be acutely encephalopathic with complaints of a headache. The patient was slow to respond and could not appropriately answer questions asked of him. In the emergency room, the patient was found to be hemodynamically stable; however, he had labs remarkable for blood glucose 331, magnesium 1.6, ammonia 33. Patient had a CT head noncontrast that was unremarkable for acute abnormality. Patient was initiated with IV fluid resuscitation and admitted for management of acute metabolic encephalopathy. The patient was newly diagnosed with type 2 diabetes mellitus with a hemoglobin A1c of 12.2. Patient had unremarkable blood cultures, urine culture, lactic acid, procalcitonin, urinary ketones. Neurology was consulted for further management. The patient's encephalopathy has since resolved, the patient is back to his baseline. The patient was counseled at length about the importance of dietary changes, incorporating exercise, weight loss, and management of newly diagnosed type 2 diabetes mellitus. Patient expressed understanding. Patient is medically clear for discharge. Care Plan Goals: Patient is medically clear for discharge. Assessment: Patient is a 40-year-old male past medical history of hypertension, morbid obesity, and gout who presented to the emergency department after having a presyncopal episode while he was outside with friends. Patient then proceeded to have nausea and vomiting for several hours that resulted in him presenting to the emergency department. On presentation, the patient was found to be acutely encephalopathic with complaints of a headache. The patient was slow to respond and could not appropriately answer questions asked of him. In the emergency room, the patient was found to be hemodynamically stable; however, he had labs remarkable for blood glucose 331, magnesium 1.6, ammonia 33. Patient had a CT head noncontrast that was unremarkable for acute abnormality. Patient was initiated with IV fluid resuscitation and admitted for management of acute met abolic encephalopathy. The patient was newly diagnosed with type 2 diabetes mellitus with a hemoglobin A1c of 12.2. Patient had unremarkable blood cultures, urine culture, lactic acid, procalcitonin, urinary ketones. Neurology was consulted for further management. The patient's encephalopathy has since resolved, the patient is back to his baseline. The patient was counseled at length about the importance of dietary changes, incorporating exercise, weight loss, and management of newly diagnosed type 2 diabetes mellitus. Patient expressed understanding. Patient is medically clear for discharge. Follow up with: KALINA NIELSEN MD [Primary Care Provider] - 7 Days DENVER EPSTEIN MD [Staff Physician] - 7 Days Prescriptions: Glimepiride [Amaryl] 4 mg PO QDDIAB #30 tablet carvediloL [Coreg] 12.5 mg PO BID #60 tablet Losartan [Cozaar] 50 mg PO QDAY #30 tablet metFORMIN [Glucophage] 850 mg PO BIDDIAB #60 tablet NIFEdipine XL [Procardia Xl] 90 mg PO QDAY #30 tablet lisinopriL [Zestril TAB] 40 mg PO QDAY #30 tablet
[2021-07-03] MEDS ORDERED: GLIMEPIRIDE 4 MG TAB PO SCH (11:00)
[2021-07-03] MEDS ORDERED: metFORMIN 850 MG TAB PO SCH (11:00)
[2021-07-03 11:44] VITALS: BP 120/84
[2021-07-03] MEDS: INSULIN LISPRO 100 UNIT/ML SUB-Q SCH ×2 (11:52→11:53)
== END 2021-07-03 15:45 | disposition home or self-care (01) | DRG 637 ==
LOC: ED 15:31 → 4A 21:20
PROVIDERS: ADMIT Hospitalist; ATTEND Student in an Organized Health Care Education/Training Program
DX: E11.65 Type 2 diabetes mellitus with hyperglycemia (principal); G93.41 Metabolic encephalopathy; Z68.44 Body mass index [BMI] 60.0-69.9, adult; E83.42 Hypomagnesemia; I10 Essential (primary) hypertension; Z82.49 Family history of ischemic heart disease and other diseases of the circulatory system; E66.01 Morbid (severe) obesity due to excess calories
CPT/HCPCS: 36415; 70450; 80048; 80053; 80307; 80320; 81001; 82140; 82550; 82553; 82607; 82747; 82805; 82962; 83036; 83690; 83735; 84100; 84439; 84443; 85007; 85025; 86695; 87040; 93005; 94640; G0378; J3490; Q0177; Q9967; G0480; J1644; J1815; J2405; J3475; J7030; J7120; U0003